=== PATIENT | female | born 2000 | race Caucasian/White ===

== ENCOUNTER 2024-10-14 18:52 | Inpatient (IN) | payer OTHER, SELFPAY ==
[2024-10-14] VITALS (79 sets, daily range): BP systolic 109–175; BP diastolic 56–90; PULSE 69–210; RESP 16–18; TEMP 36.8–37.3; O2SAT 90–100; BMI 20.7
[2024-10-14] MEDS: LACTATED RINGERS 1000 ML 1,000 ML IV ×2 (14:10→15:16)
[2024-10-14 14:19] LABS: Hematocrit 32.8 % (33.0-51.0); Hemoglobin* 10.5 gm/dL (12.0-16.0); Immature Granulocytes Abs Auto 0.03 K/uL (0.00-0.30); Immature Granulocytes Pct Auto 0.4 %; Mean Corpuscular HGB Conc 32 gm/dL (32-36); Mean Corpuscular Hemoglobin 24 pg (26-34); Mean Corpuscular Volume 74 fL (80-100); RDW Coefficient of Variation % 14.6 % (11.5-15.5); Red Blood Count 4.45 m/uL (4.00-5.20); White Blood Count* 8.55 K/uL (4.50-11.00)
[2024-10-14 14:33] LABS: Lymphocytes Absolute Auto 1.70 K/uL (0.90-2.90); Slide Review Reflex No
[2024-10-14] MEDS: BUPIVACAINE 0.25% PF 10 ML 10 ML ML EPIDURAL (15:17)
[2024-10-14] MEDS: ROPIVACAINE 0.2% 100 ml 100 ML 12 MG EPIDURAL (15:17)
[2024-10-14] MEDS: LIDOCAINE 2% (PF) 5 ML VIAL EPIDURAL (15:46)
[2024-10-14 15:55] LABS: Blood Urea Nitrogen* 4 mg/dL (5-24); Creatinine* 0.6 mg/dL (0.5-1.5); Estimated Glomerular Filt Rate 130 ml/min
[2024-10-14 15:56] LABS: Alanine Aminotransferase* 13 U/L (4-35); Aspartate Amino Transferase* 27 U/L (12-35)
--- NOTE | 2024-10-14 15:56 | PM.ANBPRC ---
PFSH PFS Social History Smoking Status: Never smoker Meds Home Medications and Allergies Allergies Allergy/AdvReac Type Severity Reaction Status Date / Time No Known Drug Allergies Allergy Verified 10/14/24 14:49 Results Labs Labs: Laboratory Results - last 24 hr 10/14/24 14:08 WBC 8.55 RBC 4.45 Hgb 10.5 L Hct 32.8 L MCV 74 L MCH 24 L MCHC 32 RDW Coeff of Som 14.6 Plt Count 226 Neut % (Auto) 72.2 H Lymph % (Auto) 19.3 L [place] % (Auto) 7.0 Eos % (Auto) 0.9 Baso % (Auto) 0.2 Neut # (Auto) 6.20 Lymph # (Auto) 1.70 [place] # (Auto) 0.60 Eos # (Auto) 0.08 Baso # (Auto) 0.02 Abs Immat Gran (auto) 0.03 Imm/Tot Granulo (auto) 0.4 Vital Signs Vital Signs: Last Vital Signs Temp 98.2 F 10/14/24 14:00 Pulse 93 10/14/24 15:54 Resp 18 10/14/24 14:00 BP 124/60 10/14/24 15:54 Pulse Ox 90 10/14/24 15:52 Height: 162.56 cm Anesthesia Procedures Epidural Insertion Patient Location: OB Start Time: 15:00 Stop Time: 16:00 Start Date: 10/14/24 Stop Date: 10/14/24 Reason for Block: procedure for pain Patient Position: sitting Performed By: Duke Tan Preanesthetic Checklist: IV checked, risks and benefits discussed, surgical consent, monitors and equipment checked, pre-op evaluation, timeout performed and anesthesia consent Prep: chlorhexidine gluconate Monitoring: blood pressure monitoring, continuous pulse oximetry and heart rate Approach: midline Vertebral Space: lumbar (1-5) Epidural Technique: WILL saline Needle Type: Tuohy needle Injection Technique: continuous catheter Needle gauge: 17 Needle Length (cm): 10 cm Needle Insertion Depth (cm): 6 Catheter Gauge: 19 Catheter Type: multi-orifice Catheter at skin depth (cm): 12 Test Dose Result: negative and lidocaine 1.5% with epinephrine 1 to 200,000
--- NOTE | 2024-10-14 16:15 | PM.OBHPLI ---
OB - H&P: HPI Labor/Induction History of Present Illness Time Seen by Provider: 16:15 Date Seen: 10/14/24 Chief Complaint: The patient is a 24 year old 2 para 0010 at 38+0 weeks gestation by lmp c/w 8 wk US, who presents with contractions. Chief complaint: Maternity : 2 Para: 0 Narrative: Estella Munoz is a 24 year old female at 38+0 days by LMP c/w 8 wk US who presents with contractions. She reports regular contractions starting around 1200 becoming more regular and intense. Upon arrival, she was tanesha regularly and painfully every 1-2 minutes, monitoring showed baseline 140, mod variability, +accels, decls. Cervix was found to be 5/90/0. She requested epidural for pain control. Initial attept was unsuccessful. A second attempt offered much better pain relief. She did have some elevated blood pressures while pain was uncontrolled, but none sustained. Pre-eclampsia labs were obtained and WNL. Now that she is resting comfortably, blood pressures have now returned to the normal range. Patient received care through [facility] in [place]. complicated by low BMI, pre-preg 16, but has had appropriate weight gain, anemia on oral iron with hgb 10.1on 10/08/24, and suspected macrosomia with EFW 98th, AC 99th on 36 week US. GBS negative. FOB is incarcerated at the [place] longterm. Srinir-eg-caa is support person. Patient recently moved from [place] to [place]. History of Present Dating criteria: based on LMP care: good care Ultrasounds: normal 1st trimester US and normal mid trimester US Abnormal ultrasound findings: 36+1 US showed EFW 98th (3591g) and AC 99th, cephalic Labs Blood type: A (+) positive Rubella: immune RPR/VDLR: nonreactive GBS status: negative HBsAG: negative Narrative: HIV, Hep C, GC/chlam neg GCT 100 Review of Systems Status of ROS: Reports: 10 or more systems reviewed and unremarkable except as noted in History and below Meds Home Medications and Allergies Allergies Allergy/AdvReac Type Severity Reaction Status Date / Time shellfish derived Allergy Intermediate Hives Verified 10/14/24 16:39 OB - H&P: Exam Physical Exam: Vital signs: Temp Pulse Resp BP Pulse Ox 98.2 F 92 18 116/69 97 10/14/24 14:00 10/14/24 16:12 10/14/24 14:00 10/14/24 16:12 10/14/24 16:12 Narrative: General appearance: Well-appearing adult female. Alert, oriented and appropriate. Lying down on left side. HEENT: EOMI, no conjunctival injection or discharge. MMM. Neck: Supple. CV: RRR, no rubs, murmurs or extra heart sounds. Pulm: CTAB, no wheezes, rales or rhonchi. Abdomen: Gravid. MSK: Moving all extremities. Ext: Warm and well-perfused. No LE edema. Skin: No rashes appreciated over exposed skin. Neuro: Grossly normal strength and sensation. No focal deficits. Psych: Normal affect. Detailed Labor and Delivery Exam: Dilation (cm): 7 (per RN) Effacement (%): 90 Comments: Ctx 2-4 mins Fetus (Single): Amniotic Membrane Status: intact Heart Rate Baseline: 135 Monitor Accelerations: Present Monitor Decelerations: None Mcc Variability: Moderate (6-25) OB - Results Labs Labs: Short CBC 10/14/24 Range/Units 14:08 WBC 8.55 (4.50-11.00) K/uL Hgb 10.5 L (12.0-16.0) gm/dL Hct 32.8 L (33.0-51.0) % Plt Count 226 (140-440) K/uL BMP 10/14/24 14:08 BUN 4 L Creatinine 0.6 Liver Function 10/14/24 Range/Units 14:08 AST 27 (12-35) U/L ALT 13 (4-35) U/L OB - Problem Based A/P Additional Plan (1) Active labor at term: Status: Acute (2) Term : Status: Acute Plan - Active labor, normal progress - GBS negative - monitoring reassuring - Resting comfortably with epidural - Discussed AROM, patient is considering - Anticipate vaginal delivery
[2024-10-14 17:42] LABS: Protein Creatinine Ratio Urine 0.15 (0-0.19)
[2024-10-14] MEDS: OXYTOCIN 30 unit/500 ML in NS 30 UNIT/500 ML BAG 300 UNIT IVPB (18:14)
[2024-10-14] MEDS: miSOPROStoL 800 MCG/4 TABLET PR (18:30)
--- NOTE | 2024-10-14 18:44 | W.PM.OBVAGDE ---
OB Procedure Vag Delivery Mother Details Mother Details: The patient is a 24 year-old, 2, Para 0, admitted on 10/14/2024 at 38+0 Days gestation. Presented in active labor. Contractions started on DOD at 1200. Upon arrival, FHT were category I, cervix was found to be 5/90/0. Patient requested epidural for pain management. Initial attempt was unsuccessful, and a second attempt was made with good pain control. Cervix 8/90/0 with bulging bag after epidural; AROM performed at 1656 for copious clear fluid. Patient progressed to complete at 1737. Pushing began 1740. FHT were category II in the second stage with variable decelerations to eugenio of 90s with contractions, return to baseline between contractions and with repositioning to patient's left side. Vigorous, male was delivered over intact perineum at 181 onto the maternal chest. Cord was cut and clamped after 60 second delay. There was active management of the third stage with IV pitocin and fundal massage. Placenta delivered spontaneously and complete, 3V at 1819. A second degree left vaginal laceration was repaired with figure-of-8 x 2 with good hemostasis. Several larger gushes of blood were noted and patient was given 800 mg of cytotec rectally. Bleeding improved. EBL 250. Mom and baby are resting comfortably. : 2 Para: 0 Weeks Gestation: 38.0 Admission Date: 10/14/24 Additional Details Amniotic Membrane Status: AROM Amniotic Membrane Rupture Date: 10/14/24 Amniotic Membrane Rupture Time: 16:56 Amniotic Membrane Fluid Description: Clear Analgesia/Anesthesia Type: Epidural Waterbirth: No Pitcoin: No Intrapartal Events: Labor Augmentation Delivery augmentation: rupture of membranes Labor Onset: 12:00 Complete: 17:37 Pushin:40 Heart: heart tones during second stage were category II. Recurrent variable decelerations with pushing to eugenio of 90s, returned to baseline between contractions and with repositioning to patient's left side. Delivery Details Delivery Date: 10/14/24 Delivery Time: 18:13 Route of delivery: Infant Gender: Male Viability: Alive; Heart Rate Present Position at Delivery: OA Delivery Details: Delivered via spontaneous vaginal delivery. was placed on maternal abdomen.? Cord was clamped and cut after a 30-60 second delay. Nose and mouth were bulb suctioned.? Infant weight pending. 1 Minute Interval Total Score: 8 5 Minute Interval Total Score: 9 Additional Details Shoulder Dystocia: No Placenta Delivery Time: 18:19 Placental Delivery Description: Spontaneous Delivery repair: Vicryl Procedure Done: Global Blood Loss: 250 Laceration: Vaginal - 2nd Degree Episiotomy Description: None Blood Loss Measurement Type: QBL Bakri Used: No Sponge/Need Count Correct: Yes Cord Vessel Description: 3 Vessels Event Summary Status: Mother and were stable after delivery. Disposition: floor
[2024-10-14] MEDS: ACETAMINOPHEN 500 MG TABLET 1000 MG PO (20:39)
[2024-10-14] MEDS: IBUPROFEN 600 MG TABLET PO (23:38)
[2024-10-15] MEDS: NICOTINE 7 MG PATCH 1 PATCH TRANSDERMA (00:13)
[2024-10-15 01:34] VITALS: BP 122/74; PULSE 67; RESP 16; TEMP 36.7; O2SAT 96
[2024-10-15] MEDS: LANOLIN CREAM 1 APPLIC TOPICAL (01:40)
[2024-10-15] MEDS: ACETAMINOPHEN 500 MG TABLET 1000 MG PO ×3 (03:38→21:22)
[2024-10-15 04:36] VITALS: BP 118/66; PULSE 71; RESP 16; TEMP 36.8; O2SAT 96
[2024-10-15 05:18] LABS: Hematocrit 28.9 % (33.0-51.0); Hemoglobin* 9.3 gm/dL (12.0-16.0); Mean Corpuscular HGB Conc 32 gm/dL (32-36); Mean Corpuscular Hemoglobin 24 pg (26-34); Mean Corpuscular Volume 73 fL (80-100); Red Blood Count 3.94 m/uL (4.00-5.20); White Blood Count* 9.77 K/uL (4.50-11.00)
[2024-10-15 05:21] LABS: Slide Review Reflex No
[2024-10-15 05:40] LABS: Alanine Aminotransferase* 12 U/L (4-35); Aspartate Amino Transferase* 44 U/L (12-35); Blood Urea Nitrogen* 6 mg/dL (5-24); Creatinine* 0.6 mg/dL (0.5-1.5); Est. Creatinine Clearance* 127.00; Estimated Glomerular Filt Rate 130 ml/min
--- NOTE | 2024-10-15 08:01 | P.OBPN_ITS ---
OB - PN:Subj Subjective Time Seen by Provider: 08:01 Date Seen: 10/15/24 Interval history: pt is seen in routine rounds. Overnight has done well. Had some increased bleeding after laying for awhile and getting up to bathroom. Was evaluated by RN and listed as moderate and thought appropriate amount per RN. Cramping with feeds. no pain. no headaches. OB - PN: Obj Exam Physical Exam: Vital signs: Temp Pulse Resp BP Pulse Ox O2 Del Method 98.2 F 71 16 118/66 96 Room Air 10/15/24 04:36 10/15/24 04:36 10/15/24 04:36 10/15/24 04:36 10/15/24 04:36 10/15/24 04:36 Constitutional: Constitutional: no acute distress and cooperative Routine HEENT Exam: Head: Present normal inspection Eye: Present normal appearance Routine Abdominal Exam: Fundus: Present firm (at umbilicus) OB - PN: Obj Data Labs Labs: Laboratory Results - last 24 hr 10/14/24 10/14/24 10/15/24 14:08 17:11 05:15 WBC 8.55 9.77 RBC 4.45 3.94 L Hgb 10.5 L 9.3 L Hct 32.8 L 28.9 L MCV 74 L 73 L MCH 24 L 24 L MCHC 32 32 RDW Coeff of Som 14.6 Plt Count 226 215 Neut % (Auto) 72.2 H Lymph % (Auto) 19.3 L Mck[place]ley % (Auto) 7.0 Eos % (Auto) 0.9 Baso % (Auto) 0.2 Neut # (Auto) 6.20 Lymph # (Auto) 1.70 Mckinley # (Auto) 0.60 Eos # (Auto) 0.08 Baso # (Auto) 0.02 Abs Immat Gran (auto) 0.03 Imm/Tot Granulo (auto) 0.4 BUN 4 L 6 Creatinine 0.6 0.6 Estimated Creat Clear 127.00 Estimated GFR 130 130 AST 27 44 H ALT 13 12 Urine Creatinine 72.2 Protein/Creatinin Ratio 0.15 Urine Total Protein 11 Blood Type A Positive Antibody Screen NEGATIVE OB - PN: A/P Delivery Assessment and Plan (1) Active labor at term: Status: Acute (2) Term : Status: Acute (3) (normal spontaneous vaginal delivery): Problem details: G1, now P1 delivered 10/14/24 at 1813, . Status: Acute Assessment and Plan: -had elevated bp's in labor but NOT >4 hours apart AND per provider and pt, were when pt was screaming in pain as epidural was not working. No elevated BP's since after 190 last night. -AST minimally elevated this am at 44, will recheck 6 hours from then. Discussed BP's and labs with pt. Discussed may need further testing/intervention if BP increases again or labs increasing. pt reported understanding and all questions answered. -plan likely home tomorrow if BP/labs look okay and continues to do well
[2024-10-15 09:07] VITALS: BP 125/77; PULSE 76; RESP 15; O2SAT 97
[2024-10-15] MEDS: DOCUSATE SODIUM 100 MG CAPSULE PO (09:13)
[2024-10-15] MEDS: IBUPROFEN 600 MG TABLET PO ×2 (09:13→19:59)
[2024-10-15 09:15] VITALS: TEMP 36.4
[2024-10-15 12:12] LABS: Alanine Aminotransferase* 12 U/L (4-35); Aspartate Amino Transferase* 36 U/L (12-35); Creatinine* 0.6 mg/dL (0.5-1.5); Est. Creatinine Clearance* 127.00; Estimated Glomerular Filt Rate 130 ml/min
[2024-10-15 14:12] VITALS: BP 122/81; PULSE 75; RESP 16; TEMP 36.6; O2SAT 98
--- NOTE | 2024-10-15 15:28 | PC.SOCIAL ---
Social Service Consult: CASANDRA met with patient and patient's sister. Patient reports that she is doing well overall. Patient explains that she currently has a place to live through the [facility] and feels safe and comfortable there. Patient states that she will be able to get an extension there until January. Patient reports that the [facility] has helped her obtain all of the necessary baby items - pack and play, clothes, diapers, etc. Patient reports that she has a car currently, but won't soon. SW inquired about transportation barriers after she doesn't have a car and patient expresses that she doesn't have concerns about it. Patient reports she has her sister for emotional support, however, she lives in [place], otherwise she has her boyfriend's family. SW reviewed PMADS with patient and sister and will provide them with copies. Patient was also open to receiving information about parenting support groups, which SW will bring information on in the morning. Patient explains she is on WIC, but not on SNAP as when she applied she was told she needed to have child support first. SW explained that she doesn't believe this is the case and will bring information around this and the number for [facility]. SW went to bring all the information to patient, however, the echo team was in there, so patient was okay with SW coming back in the morning. SW to continue to support patient.
[2024-10-15 20:10] VITALS: BP 114/71; PULSE 70; RESP 16; TEMP 36.6; O2SAT 95
[2024-10-16] MEDS: NICOTINE 7 MG PATCH 1 PATCH TRANSDERMA (00:07)
[2024-10-16] MEDS: IBUPROFEN 600 MG TABLET PO ×2 (02:27→09:41)
[2024-10-16 02:32] VITALS: BP 113/69; PULSE 76; RESP 18; TEMP 36.6; O2SAT 96
[2024-10-16] MEDS: ACETAMINOPHEN 500 MG TABLET 1000 MG PO (05:59)
--- NOTE | 2024-10-16 08:05 | PM.OBDSVD1 ---
DS: Providers Provider Date Seen: 10/16/24 Date of admission: 10/14/24 18:52 Primary care physician: Not a Local Provider Admitting Clinician: Demetria Garcia MD Consults: 10/14/24 16:23 Consult to Pediatrician Active Practice [CONS] Routine Comment: Reason for Consult:: Discharge Planning Needs Social Service Consult Attending Physician on discharge: Pauly Albarran MD Date of Discharge: 10/16/24 DS: Diagnosis Discharge Diagnosis (1) (normal spontaneous vaginal delivery): Status: Acute Problem details: G1, now P1 delivered 10/14/24 at 1813, . Exam Const: Vital Signs, click to edit/add: Vital Signs - 24 hr 10/15/24 09:07 10/15/24 09:15 10/15/24 14:12 Temperature 97.5 F L 97.9 F Pulse Rate [Pulse Oximeter] 76 75 Respiratory Rate 15 16 Blood Pressure [Le ft Arm] 125/77 122/81 Pulse Oximetry 97 98 Oxygen Delivery Me thod Room Air Room Air 10/15/24 20:10 10/16/24 02:32 Temperature 97.8 F 98 F Pulse Rate [Pulse Oximeter] 70 76 Respiratory Rate 16 18 Blood Pressure [Le ft Arm] 114/71 113/69 Pulse Oximetry 95 96 Oxygen Delivery Me thod Room Air Room Air Documenting provider has reviewed patient's vital signs: yes Common normals: no apparent distress, average body habitus, healthy appearing and alert General appearance: cooperative and comfortable Nutritional appearance: thin Orientation/consciousness: Yes awake GI: Common normals: Normal to inspection, nondistended, normoactive bowel sounds present and soft to palpation Palpation: soft : Uterus: U/U (firm) Extremity: Common normals: normal to inspection, full ROM and no pedal edema Neuro: Sensorium/orientation: awake and alert Psych: Common normals: mental status grossly normal, thought process normal, cooperative, affect normal and speech normal Speech: normal speech Thought process: normal thought process OB - DS: Summary Hospital Course Hospital Course: The patient is a 24 year old G 2 P 1011 at 38 weeks gestation that was admitted to the Center on 10/14/24 for active labor. She had an uncomplicated vaginal delivery. She delivered a viable male infant. She is breast feeding. the patient has done well. Peripartum Data delivery method: Vaginal Laceration description: Perineal - 2nd Degree complications: none Infant Gender: Male Infant Discharge Plan: Home Status at Discharge Functional status at discharge: independent ambulation Overall status at discharge: patient is progressing back to baseline Time Spent with Patient Time attestation: Total time spent providing and/or coordinating discharge services: Time spent: Less than 30 minutes Discharge Plan Discharge Disposition: Home, Self-Care Date of Admission: 10/14/24 18:52 Attending Provider on Discharge: Pauly Albarran Primary Care Provider: Provider,Not a Local Condition: Improved Anticipated Discharge Date/Time: 10/16/24 08:08 Discharge Medications: Continued ferrous sulfate [iron] 325 mg (65 mg iron) tablet 325 mg PO Q48H Discharge Orders: Discharge Order (Routine); Ordered 10/16/24 Ordered By: Pauly Albarran Patient Education: OB Vaginal/Breast Feeding Activity Level: No Restrictions Activity Detail: Nothing per vagina x6 weeks Discharge Diet: Regular Follow Up Appointments: Provider,Not a Local [Primary Care Provider, Family Practice] Forms: [facility], [facility] Info Instructions
[2024-10-16 09:20] VITALS: BP 121/72; PULSE 69; RESP 16; TEMP 36.6; O2SAT 97
[2024-10-16] MEDS: DOCUSATE SODIUM 100 MG CAPSULE PO (09:41)
--- NOTE | 2024-10-16 10:10 | PC.SOCIAL ---
SW met with patient and reviewed resources discussed and provided - SNAP, child support, CAC, Parenting Support with [facility], ECFE, Baby Talk, and PMADS. SW to assist if other needs arise prior to discharge. SW updated patient's demographics with registration.
--- NOTE | 2024-10-16 11:42 | PM.ANPOST ---
Post Anesthesia Note Post Anesthesia Note Patient seen: Inpatient Respiratory Status: adequate Cardiovascular Status: adequate Mental Status: baseline Pain: adequate Temp: baseline Anesthetic awareness: N/A Complications: none Follow care: none
[2024-10-16 15:41] VITALS: BP 127/81; PULSE 74; RESP 16; TEMP 36.7; O2SAT 97
== END 2024-10-16 18:03 | disposition home or self-care (01) | DRG 560 ==
LOC: OB OUT 18:52 → OB 18:52
PROVIDERS: Family Medicine; Admitting Provider Family Medicine; Visit Provider Family Medicine
DX: O99.02 Anemia complicating childbirth (principal); D64.9 Anemia, unspecified; O70.1 Second degree perineal laceration during delivery; R03.0 Elevated blood-pressure reading, without diagnosis of hypertension; Z63.8 Other specified problems related to primary support group; Z37.0 Single live birth; Z3A.38 38 weeks gestation of pregnancy
CPT/HCPCS: 01967; 36415; 82565; 82570; 84156; 84450; 84460; 84520; 85025; 85027; 85049; 86592; 86850; 86900; 86901; G0463; A9270; J0665; J2795; J7120; S4990

== ENCOUNTER 2024-10-19 06:41 | Outpatient (CLI) | payer OTHER, SELFPAY | END 2024-10-19 06:42 | disposition home or self-care (01) | LOC: AMB 10-21 11:24 | PROVIDERS: Visit Provider Family Medicine | DX: R07.89 Other chest pain (principal); R06.09 Other forms of dyspnea | CPT/HCPCS: A0425; A0427 ==

== ENCOUNTER 2024-10-19 07:12 | Observation (INO) | payer OTHER, SELFPAY ==
--- OUTSIDE RECORDS SUMMARY | 2024-09-05 11:00 | XMS_ITS | Encounter Summary ---
Author Organization [facility] Address [address] [place] [address] Care Team Providers Care Needle Punch Machine Operator Name Role Phone None Reported, Pcp Primary Care Provider Unavail able Reason for Visit * Reason Comments Routine Visit 32+3weeks * Outpatient (Routine) - Closed Specialty Diagnoses / Procedures Referred By Pippa roman Referred To Contact Obstetrics and Gynecology Alban Haas Jr., M.D. Phone: tel: fax: [facility] Region Referral ID Status Reason Start Date Expiration Date Visits Re quested Visits Authorized [id number] Closed 05/27/2024 11/26/2025 1 1 Encounter Details Date Type Department Care Team (Latest Contact Info) Description 09/05/2024 11:00 AM CDT Routine Department of Obstetrics and Gynecology in [place], [place] [address] [place] [phone] Alban Haas Jr., M.D. [address] [place] [phone] Anemia (HCC) (Primary Dx); Encounter For Supervision Of Normal First Unspecified Trimester (HCC) Social History Tobacco Use Types Packs/Day Years Used Date Smoking Tobacco: Never Passive Smoke Exposure: Current Smokeless Tobacco: Never Comments:Vaping discontinued 03/08/2024 Alcohol Use Standard Drinks/Week Comments Never 0 (1 standard drink = 0.6 oz pur e alcohol) [facility] Utilities Answer Date Recorded In the past 12 months has [employer] electric, gas, oil, or water company threatened to shut off services in your home? No 08/18/2024 Humiliation, Afraid, Rape, and Kick questionnair e Answer Date Recorded Within the last year, have y ou been afraid of your partner or ex-partner? No 03/31/2022 Within the last year, have y ou been humiliated or emotionally abused in other ways by your partner or ex-partner? No Within the last year, have y ou been kicked, hit, slapped, or otherwise physically hurt by your partner or ex-partner? No 03/31/2022 Within the last year, have y ou been raped or forced to have any kind of sexual activity by your partner or ex-partner? No 03/31/2022 Hunger Vital Sign Answer Date Recorded Within the past 12 months, y ou worried that your food would run out before you got the money to buy more. Often true Within the past 12 months, t he food you bought just didn't last and you didn't have money to get more. Sometimes true PRAPARE - Transportation Answer Date Re corded In the past 12 months, has l ack of transportation kept you from medical appointments or from getting medications? No 08/06 In the past 12 months, has l ack of transportation kept you from meetings, work, or from getting things needed for daily living? Yes 08/18/2024 Depression Answer Date Recor ded PHQ-9 Total Score (max 27) 2 08/05 Housing Stability Answer Date Recorded What is your living situatio n today? I do not have a steady place to live (I am temporarily staying with others, in a hotel, in a mcc, living outside on the street, on a beach, in a car, abandoned building, bus or train station, or in a park) 08/18/2024 Education Answer Date Recorded What is the highest level of school you have completed or the highest degree you have received? 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 - 09/05/2024 11:00 AM CDT Images from the original note were not included. SUBJECTIVE Good movement. No consistent contractions. She does have some right rib pain at times as her ribs are getting stretched as well as some pelvic rim discomfort intermittently, especially at work.No consistent contractions. PHYSICAL EXAM GEN: NAD Lower Extremities: NT, no edema DIAGNOSTICS Ultrasound at 36 weeks ASSESSMENT / PLAN Estella Munoz is a 24 y.o. female at 32w3d who presents for OBFU. #1 Anemia (HCC) Overview: Started on oral iron. Repeat ferritin and CBC ordered 06/10/2024. Consider iron infusion if needed. Patient does complain of restless legs. Hemoglobin 10.1 on 08/05. #2 Encounter For Supervision Of Normal First Unspecified Trimester (HCC) Overview: Dating: LMP 5d discrep w/ 8 week ultrasound NIPS declined. Urinalysis and routine labs done today. Orders through: 39 weeks, us 36 Thirty week ultrasound shows growth at around 80th percentile overall normal fluid. Work lifting restrictions given, told her I am retiring October 15. Pelvic brim is somewhat tender advised on local ice as needed. support belt given. Other orders - Obstetrics and Gynecology office visit (clinic) Follow up: Appointments ordered through 39 weeks. documented in this encounter Plan of Treatment Not on file documented as of this encounter Goals Goal Patient Goal Type Associated Problems Recent Progress Patient-Stated? Author [facility] Care Plan for Healthy Care Plan [facility] Care Plan for Healthy No Support, [facility] - Nicotine Dependency Chronic Care Plan [facility] Care Plan for Healthy No Support, [facility] NICOTINE CURRENT SMOKER - HEALTHY Care Plan [facility] NICOTINE CURRENT SMOKER - HEALTHY No Patient, Online Services documented as of this encounter Visit Diagnoses Diagnosis Anemia (HCC)- Primary Encounter For Supervision Of Normal First Unspecified Trimester (HCC) documented in this encounter Additional Health Concerns Active Problems Noted Date Diagnosed Date [facility] Care Plan for Healthy 04/06 [facility] NICOTINE CURRENT SMOKER - HEALTHY PREGNA NCY 04/23/2024 Assessment Noted Time PHQ-9 Depression Total Score: 2 08/06/19 25 10:55 AM CDT documented as of this encounter Care Teams Needle Punch Machine Operator Relationship Specialty Start Date End Date None Reported, Pcp PCP - General Family Medicine 06/06/24 documented as of this encounter
--- OUTSIDE RECORDS SUMMARY | 2024-09-18 09:15 | XMS_ITS | Encounter Summary ---
Author Organization [facility] Address [address] [place] [address] Care Team Providers Care Beverage Manager Name Role Phone None Reported, Pcp Primary Care Provider Unavail able Reason for Visit * Reason Comments Routine Visit 34 2/7 week OB ch ed * Outpatient (Routine) - Closed Specialty Diagnoses / Procedures Referred By Pippa roman Referred To Contact Obstetrics and Gynecology Alban Haas Jr., M.D. Phone: tel: fax: [facility] Region Referral ID Status Reason Start Date Expiration Date Visits Re quested Visits Authorized [id number] Closed 07/08/2024 01/07/2026 1 1 Encounter Details Date Type Department Care Team (Latest Contact Info) Description 09/18/2024 9:15 AM CDT Routine Department of Obstetrics and Gynecology in [place], [place] [address] [place] [phone] Alban Haas Jr., M.D. [address] [place] [phone] Encounter For Supervision Of Normal First Unspecified Trimester (HCC) (Primary Dx) Social History Tobacco Use Types Packs/Day Years Used Date Smoking Tobacco: Never Passive Smoke Exposure: Current Smokeless Tobacco: Never Comments:Vaping discontinued 03/08/2024 Alcohol Use Standard Drinks/Week Comments Never 0 (1 standard drink = 0.6 oz pur e alcohol) [facility] Utilities Answer Date Recorded In the past 12 months has e electric, gas, oil, or water company threatened [...] with others, in a hotel, in a fdc, living outside on the street, on a [...] PM CDT 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 - 09/18/2024 9:15 AM CDT Images from the original note were not included. SUBJECTIVE Occasional contractions. Sometimes when she is lying down sometimes when she is walking around. Shehas stopped work as it was just too uncomfortable. PHYSICAL EXAM GEN: NAD Lower Extremities: NT, no edema DIAGNOSTICS Ultrasound and GBS next visit ASSESSMENT / PLAN Estella Munoz is a 24 y.o. female at 34w2d who presents for OBFU. #1 Encounter For Supervision Of Normal First Unspecified Trimester (HCC) Overview: Dating: LMP 5d discrep w/ 8 week ultrasound NIPS declined. Urinalysis and routine labs done today. Thirty week ultrasound shows growth at around 80th percentile overall normal fluid. Work lifting restrictions given, told her I am retiring October 15. Pelvic brim is somewhat tender advised on local ice as needed. support belt given. 09/18/2024: Patient is stable. Having occasional contractions. labor precautions discussed. Has a appointments through 10/21. Other orders - Obstetrics and Gynecology office visit (clinic) Follow up: Scheduled. documented in this encounter Plan of Treatment Not on file documented as of this encounter Goals Goal Patient Goal Type Associated Problems Recent Progress Patient-Stated? Author [facility] Care Plan for Healthy Care Plan [facility] Care Plan for Healthy No Support, [facility] - Nicotine Dependency Chronic Care Plan [facility] Care Plan for Healthy No Support, [facility] NICOTINE CURRENT SMOKER - HEALTHY Care Plan [facility] NICOTINE CURRENT SMOKER - HEALTHY No Patient, Online Services documented as of this encounter Visit Diagnoses Diagnosis Encounter For Supervision Of Normal First Unspecified Trimester (HCC)- Primary documented in this encounter Additional Health Concerns Active Problems Noted Date Diagnosed Date [facility] Care Plan for Healthy 04/06 [facility] NICOTINE CURRENT SMOKER - HEALTHY PREGNA NCY 04/23/2024 Assessment Noted Time PHQ-9 Depression Total Score: 2 08/06/19 25 10:55 AM CDT documented as of this encounter Care Teams Beverage Manager Relationship Specialty Start Date End Date None Reported, Pcp PCP - General Family Medicine 06/06/24 documented as of this encounter
--- OUTSIDE RECORDS SUMMARY | 2024-10-01 15:00 | XMS_ITS | Encounter Summary ---
Author Organization [facility] Address [address] [place] [address] Care Team Providers Care Artificial Fly Tier Name Role Phone None Reported, Pcp Primary Care Provider Unavail able Encounter Details Date Type Department Care Team (Latest Contact Info) Description 10/01/2024 3:00 PM CDT Ancillary Procedure Department of Obstetrics and Gynecology in [place], [place] [address] [place] [phone] Alban Haas Jr., M.D. [address] [place] [phone] Complication Underweight (HCC); Encounter For Supervision Of Normal First Unspecified Trimester (HCC) Social History Tobacco Use Types Packs/Day Years Used Date Smoking Tobacco: Never Passive Smoke Exposure: Current Smokeless Tobacco: Never Comments:Vaping discontinued 03/08/2024 Alcohol Use Standard Drinks/Week Comments Never 0 (1 standard drink = 0.6 oz pur e alcohol) [facility] Utilities Answer Date Recorded In the past 12 months has [facility] [employer], gas, oil, or water [employer] threatened to shut off services in your [...] PM CDT 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 Author [facility] Care Plan for Healthy Care Plan [facility] Care Plan for Healthy No Support, [facility] - Nicotine Dependency Chronic Care Plan [facility] Care Plan for Healthy No Support, [facility] NICOTINE CURRENT SMOKER - HEALTHY Care Plan [facility] NICOTINE CURRENT SMOKER - HEALTHY No Patient, Online Services documented as of this encounter Procedures Procedure Name Priority Date/Time Associated Diagnosis Comments US OB GROWTH PARK RAD - Routine (most inpatients and all outpatients) 10/01/2024 3:30 PM CDT Complication Underweight (HCC) Encounter For Supervision Of Normal First Unspecified Trimester (HCC) documented in this encounter Results * US OB Growth Park (10/01/2024 3:30 PM CDT) Anatomical Region Laterality Modality Body, Ultrasound OB RST LOS, Ultrasound ARZ LOS N/A Ultrasound Impressions 10/01/2024 3:36 PM CDT Single intrauterine at 36 w 1 d gestation. --Estimated weight (3591 g) at the 98th percentile, abdominal circumference at the 99th percentile. --Cephalic presentation with normal amniotic fluid volume. Narrative 10/01/2024 3:36 PM CDT EXAM: US OB GROWTH PARK COMPARISON: Correlation is performed with several prior studies, most recently ultrasound 08/20/2024. TECHNIQUE: Transabdominal Only FINDINGS: Number of Gestations: Single Established Gestational age: 36 w 1 d, MICAH: 10/28/2024 Presentation: Cephalic Placenta Location: Anterior Placental Relationship to Internal Os: Not well visualized on today's exam but appeared normal on prior exam Amniotic Fluid: Subjectively normal in volume Maximum Vertical Pocket: 7.2 cm Age by current ultrasound measurements: 38 w 1 d Estimated weight: 3591 g. EFW %: 97.6 % heart rate: 141 Motion: Normal. Stomach: Normal. Kidneys: Normal. Bladder: Normal. BIOMETRIC PARAMETERS: BPD: 36 w 3 d 65.7 % HC: 39 w 3 d 90.6 % AC: 39 w 6 d 99.0 % FL: 37 w 1 d 71.3 % HC/AC ratio: 0.95 Uterus: No unexpected findings. Right ovary/adnexa: Normal. Left ovary/adnexa: Normal. Cervix: . Not well viewed Procedure Note Zeeshan Guillen M.D. - 10/01/2024 EXAM: US OB GROWTH PARK COMPARISON: Correlation is performed with several prior studies, mostrecently ultrasound 08/20/2024. TECHNIQUE: Transabdominal Only FINDINGS: Number of Gestations: Single Established Gestational age: 36 w 1 d, MICAH: 10/28/2024 Presentation: Cephalic Placenta Location: Anterior Placental Relationship to Internal Os: Not well visualized on today's exambut appeared normal on prior exam Amniotic Fluid: Subjectively normal in volume Maximum Vertical Pocket: 7.2 cm Age by current ultrasound measurements: 38 w 1 d Estimated weight: 3591 g. EFW %: 97.6 % heart rate: 141 Motion: Normal. Stomach: Normal. Kidneys: Normal. Bladder: Normal. BIOMETRIC PARAMETERS: BPD: 36 w 3 d 65.7 % HC: 39 w 3 d 90.6 % AC: 39 w 6 d 99.0 % FL: 37 w 1 d 71.3 % HC/AC ratio: 0.95 Uterus: No unexpected findings. Right ovary/adnexa: Normal. Left ovary/adnexa: Normal. Cervix: . Not well viewed IMPRESSION: Single intrauterine at 36 w 1 d gestation. --Estimated weight (3591 g) at the 98th percentile, abdominalcircumference at the 99th percentile. --Cephalic presentation with normal amniotic fluid volume. us Alban Haas Jr., M.D. IMG OB US PROCEDURES F inal Result documented in this encounter Visit Diagnoses Diagnosis Complication Underweight (HCC) Encounter For Supervision Of Normal First Unspecified Trimester (HCC) documented in this encounter Additional Health Concerns Active Problems Noted Date Diagnosed Date [facility] Care Plan for Healthy 04/06 [facility] NICOTINE CURRENT SMOKER - HEALTHY PREGNA NCY 04/23/2024 Assessment Noted Time PHQ-9 Depression Total Score: 2 08/06/19 10:55 AM CDT documented as of this encounter Care Teams Artificial Fly Tier Relationship Specialty Start Date End Date None Reported, Pcp PCP - General Family Medicine 06/06/24 documented as of this encounter
--- OUTSIDE RECORDS SUMMARY | 2024-10-01 16:00 | XMS_ITS | Encounter Summary ---
Author Organization [facility] Address [address] [place] [address] Care Team Providers Care Track Mechanic Name Role Phone None Reported, Pcp Primary Care Provider Unavail able Reason for Visit * Reason Comments Routine Visit 36+1weeks * Outpatient (Routine) - Closed Specialty Diagnoses / Procedures Referred By Pippa roman Referred To Contact Obstetrics and Gynecology Alban Haas Jr., M.D. Phone: tel: fax: [facility] Referral ID Status Reason Start Date Expiration Date Visits Re quested Visits Authorized [id number] Closed 08/18/2024 02/17/2026 1 1 Encounter Details Date Type Department Care Team (Latest Contact Info) Description 10/01/2024 4:00 PM CDT Routine Department of Obstetrics and Gynecology in [place], [place] [address] [phone] Alban Haas Jr., M.D. [address] [place] [phone] Encounter For Supervision Of Normal First Unspecified Trimester (HCC) (Primary Dx); Complication Underweight (HCC) Social History Tobacco Use Types Packs/Day Years Used Date Smoking Tobacco: Never Passive Smoke Exposure: Current Smokeless Tobacco: Never Comments:Vaping discontinued 03/08/2024 Alcohol Use Standard Drinks/Week Comments Never 0 (1 standard drink = 0.6 oz pur e alcohol) [facility] Utilities Answer Date Recorded In the past 12 months has [employer] electric, gas, oil, or water company threatened [...] with others, in a hotel, in a skilled nursing, living outside on the street, on a [...] PM CDT 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 - 10/01/2024 4:00 PM CDT SUBJECTIVE Good movement with some occasional cramps. Difficult for her to breathe at night when she lies flat. Advised on elevating her bed on send her blocks. PHYSICAL EXAM GEN: NAD Lower Extremities: NT, no edema Cervix: Baby is starting to engage it about a -1 to -2 station. Slightly dilated cervix and starting to efface. DIAGNOSTICS Ultrasound reviewed ASSESSMENT / PLAN Estella Munoz is a 24 y.o. female at 36w1d who presents for OBFU. #1 Encounter For [...] precautions discussed. Has a appointments through 10/21. 10/01/2024: GBS obtained. Labor precautions. Ultrasound shows growth at over 97th percentile with large abdominal circumference. Cephalic presentation and normal fluid. Orders: - Group B Strep (S. agalactiae), PCR #2 Complication Underweight (HCC) Overview: Prepregnancy BMI 16. Public Health/WIC consult placed. Nutrition consult ordered. 04/18/2024: Patient gaining weight appropriately and believes she is eating well. Good growth. 07/09/2024: 10 kg of weight gain so far this at 24 weeks. 10/01/2024 Growth >95%ile Has a appointments through 39 weeks. Other orders - Obstetrics and Gynecology office visit (clinic) Follow up: 1 week. Labor precautions given. documented in this encounter Plan of Treatment Not on file documented as of this encounter Goals Goal Patient Goal Type Associated Problems Recent Progress Patient-Stated? Author [facility] Care Plan for Healthy Care Plan [facility] Care Plan for Healthy No Support, [facility] - Nicotine Dependency Chronic Care Plan [facility] Care Plan for Healthy No Support, [facility] NICOTINE CURRENT SMOKER - HEALTHY Care Plan [facility] NICOTINE CURRENT SMOKER - HEALTHY No Patient, Online Services documented as of this encounter Procedures Procedure Name Priority Date/Time Associated Diagnosis Comments GROUP B STREP (S. AGALACTIAE), PCR Routine 10/01/2024 3:29 PM CDT Encounter For Supervision Of Normal First Unspecified Trimester (HCC) documented in this encounter Results * Group B Strep (S. agalactiae), PCR (10/01/2024 3:29 PM CDT) Grp B Strep (S. agalactiae), PCR Negative Negative 10/02/2024 2:12 PM CDT TO Swab (Vagina-Rectum) 10/01/2024 3:29 PM CDT 10/01/2024 6:54 PM CDT us Alban Haas Jr., M.D. LAB MICROBIOLOGY - GEN ERAL ORDERABLES Final Result [facility] [address] [place] [address], [facility] in [place] [address] [place] [phone] documented in this encounter Visit Diagnoses Diagnosis Encounter For Supervision Of Normal First Unspecified Trimester (HCC)- Primary Complication Underweight (HCC) documented in this encounter Additional Health Concerns Active Problems Noted Date Diagnosed Date [facility] Care Plan for Healthy 04/06 [facility] NICOTINE CURRENT SMOKER - HEALTHY PREGNA NCY 04/23/2024 Assessment Noted Time PHQ-9 Depression Total Score: 2 08/06/19 10:55 AM CDT documented as of this encounter Care Teams Track Mechanic Relationship Specialty Start Date End Date None Reported, Pcp PCP - General Family Medicine 06/06/24 documented as of this encounter
--- OUTSIDE RECORDS SUMMARY | 2024-10-08 10:30 | XMS_ITS | Encounter Summary ---
Author Organization [facility] Address [address] [place] [address] Care Team Providers Care Studio Operation Engineer Name Role Phone None Reported, Pcp Primary Care Provider Unavail able Reason for Visit * Reason Comments Routine Visit [id number] * Outpatient (Routine) - Closed Specialty Diagnoses / Procedures Referred By Pippa roman Referred To Contact Obstetrics and Gynecology Alban Haas Jr., M.D. Phone: tel: fax: [facility] Region Referral ID Status Reason Start Date Expiration Date Visits Re quested Visits Authorized [id number] Closed 07/08/2024 01/07/2026 1 1 Encounter Details Date Type Department Care Team (Latest Contact Info) Description 10/08/2024 10:30 AM CDT Routine Department of Obstetrics and Gynecology in [place], [place] [address] [place] [phone] Alban Haas Jr., M.D. [address] [place] [phone] Anemia (HCC) (Primary Dx); Encounter For Screening For Macrosomia (HCC); Encounter For Supervision Of Normal First Unspecified Trimester (HCC) Social History Tobacco Use Types Packs/Day Years Used Date Smoking Tobacco: Never Passive Smoke Exposure: Current Smokeless Tobacco: Never Comments:Vaping discontinued 03/08/2024 Alcohol Use Standard Drinks/Week Comments Never 0 (1 standard drink = 0.6 oz pur e alcohol) [facility] Utilities Answer Date Recorded In the past 12 months has e [employer], gas, oil, or water company threatened to [...] with others, in a hotel, in a long term, living outside on the street, on a [...] PM CDT 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 - 10/08/2024 10:30 AM CDT SUBJECTIVE Still having difficulty sleeping. Good movement. Becoming very uncomfortable. Very anxious about delivery. PHYSICAL EXAM GEN: NAD Lower Extremities: NT, no edema\ Cervix: 250/-1 DIAGNOSTICS Ultrasound ordered for 39 weeks. ASSESSMENT / PLAN Estella Munoz is a 24 y.o. female at 37w1d who presents for OBFU. #1 Anemia (HCC) Overview: Started on oral iron. Repeat ferritin and CBC ordered 06/10/2024. Consider iron infusion if needed. Patient does complain of restless legs. Hemoglobin 10.1 on 08/05. 10/08/2024: CBC repeated Orders: - CBC without Differential; Future; Expected date: 10/08/2024 #2 Encounter For Screening For Macrosomia (HCC) Overview: 10/01/2024 ultrasound BIOMETRIC PARAMETERS: BPD: 36 w 3 d 65.7 % HC: 39 w 3 d 90.6 % AC: 39 w 6 d 99.0 % FL: 37 w 1 d 71.3 % HC/AC ratio: 0.95 IMPRESSION: Single intrauterine at 36 w 1 d gestation. --Estimated weight (3591 g) at the 98th percentile, abdominal circumference at the 99th percentile. --Cephalic presentation with normal amniotic fluid volume. 10/08/2024: Repeat ultrasound at 39 weeks. Patient is very concerned about size of the baby and pelvic floor issues. She is also concerned about distress if the baby gets stuck. Discussed natural course of labor in the fact that it isencouraging that the baby is starting to engage and her cervix is changing. However also discussed that as her choice if she wants to have a primary section. Risk of surgery including bleeding infection damage to internal organs fact that she may need sections in the future discussed. Also increase risk of postoperative complications versus a vaginal delivery. We will talk about this again next week. Appears to have pretty significant anxiety around this potential vaginal delivery. Orders: - US OB Growth Corley; Future; Expected date: 10/22/2024 #3 Encounter For Supervision Of Normal First Unspecified [...] abdominal circumference. Cephalic presentation and normal fluid. Other orders - Obstetrics and Gynecology office visit (clinic) Follow up: 1 week, ultrasound in 2 weeks. documented in this encounter Plan of Treatment Scheduled Orders Name Type Priority Associated Diagnoses Orde r Schedule US OB Growth Corley Imaging RAD - Routine (most inpatients and all outpatients) Encounter For Screening For Macrosomia (HCC) Expected: 10/22/2024, Expires: 01/07/2026 documented as of this encounter Goals Goal Patient Goal Type Associated Problems Recent Progress Patient-Stated? Author [facility] Care Plan for Healthy Care Plan [facility] Care Plan for Healthy No Support, Elinor [facility] - Nicotine Dependency Chronic Care Plan [facility] Care Plan for Healthy No Support, Elinor [facility] NICOTINE CURRENT SMOKER - HEALTHY Care Plan [facility] NICOTINE CURRENT SMOKER - HEALTHY No Patient, Online Services documented as of this encounter Results * (ABNORMAL) CBC without Differential (10/08/2024 11:39 AM CDT) Hemoglobin 10.1(L) 11.6 - 15.0 g/dL 10/08/2024 11:44 AM CDT OWAT Hematocrit 32.3(L) 35.5 - 44.9 % 10/08/2024 11:44 AM CDT OWAT Erythrocytes 4.25 3.92 - 5.13 x10(12)/L 10/08/2024 11:44 AM CDT OW[facility] MCV 76.0(L) 78.2 - 97.9 fL 10/08/2024 11:44 AM CDT OW[facility] RBC Distrib Width 14.8 12.2 - 16.1 % 10/08/2024 11:44 AM CDT OW[facility] Platelet Count 222 157 - 371 x10(9)/L 10/08/2024 11:44 AM CDT OW[facility] Leukocytes 8.1 3.4 - 9.6 x10(9)/L 10/08/2024 11:44 AM CDT OWAT Blood (Blood, Venous) 10/08/2024 11:39 AM CDT 10/08/2024 11:42 AM CDT us Alban Haas Jr., M.D. LAB BLOOD ADD-ON Final Result [facility] [address] [place] [address], [facility] [place] [address], [place] [address] documented in this encounter Visit Diagnoses Diagnosis Anemia (HCC)- Primary Encounter For Screening For Macrosomia (HCC) Encounter For Supervision Of Normal First Unspecified Trimester (HCC) documented in this encounter Additional Health Concerns Active Problems Noted Date Diagnosed Date [facility] Care Plan for Healthy 04/06 [facility] NICOTINE CURRENT SMOKER - HEALTHY PREGNA NCY 04/23/2024 Assessment Noted Time PHQ-9 Depression Total Score: 2 08/06/19 10:55 AM CDT documented as of this encounter Care Teams Studio Operation Engineer Relationship Specialty Start Date End Date None Reported, Pcp PCP - General Family Medicine 06/06/24 documented as of this encounter
--- OUTSIDE RECORDS SUMMARY | 2024-10-08 11:10 | XMS_ITS | Encounter Summary ---
Author Organization [facility] Address [address] [place] [address] Care Team Providers Care Sales Representative Public Utilities Name Role Phone None Reported, Pcp Primary Care Provider Unavail able Encounter Details Date Type Department Care Team (Latest Contact Info) Description 10/08/2024 11:10 AM CDT - 10/08/2024 11:59 PM CDT Hospital Encounter Department of Laboratory Medicine in [place], [place] [address], [place] [phone] Alban Haas Jr., M.D. [address] [place] [phone] Anemia (HCC) Discharge Disposition: Home or Self Care Social History Tobacco Use Types Packs/Day Years Used Date Smoking Tobacco: Never Passive Smoke Exposure: Current Smokeless Tobacco: Never Comments:Vaping discontinued 03/08/2024 Alcohol Use Standard Drinks/Week Comments Never 0 (1 standard drink = 0.6 oz pur e alcohol) [facility] Utilities Answer Date Recorded In the past 12 months has [facility] [employer], gas, oil, or water [employer] threatened to shut off services in your [...] with others, in a hotel, in a correction, living outside on the street, on a [...] PM CDT 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 Do not crush or chew. 100 tablet 3 04/18/2024 [id number]-wwcf-[id number] A (Vinate One) 60 mg iron-1 mg per tablet Take 1 tablet by mouth daily. documented as of this encounter Plan of Treatment Not on file documented as of this encounter Goals Goal Patient Goal Type Associated Problems Recent Progress Patient-Stated? Author [facility] Care Plan for Healthy Care Plan [facility] Care Plan for Healthy No Support, [facility] Care [facility] for Healthy No Support, Elinor [facility] NICOTINE CURRENT SMOKER - HEALTHY Care Plan [facility] NICOTINE CURRENT SMOKER - HEALTHY No Patient, Online Services documented as of this encounter Procedures Procedure Name Priority Date/Time Associated Diagnosis Comments CBC WITHOUT DIFFERENTIAL, B Routine 10/08/2024 11:39 AM CDT Anemia (HCC) documented in this encounter Results * (ABNORMAL) CBC without [...] Jr., M.D. LAB BLOOD ADD-ON Final Result [facility] [address] [place] [address], [place] OW[place] [facility] in [place] [address] [place] [address] documented in this encounter Visit Diagnoses Diagnosis Anemia (HCC) documented in this encounter Additional Health Concerns Active Problems Noted Date Diagnosed Date [facility] Care Plan for Healthy 04/06 [facility] CURRENT SMOKER - HEALTHY PREGNA NCY 04/23/2024 Assessment Noted Time PHQ-9 Depression Total Score: 2 08/06/19 25 10:55 AM CDT documented as of this encounter Care Teams Sales Representative Public Utilities Relationship Specialty Start Date End Date None Reported, Pcp PCP - General Family Medicine 06/06/24 documented as of this encounter
[2024-10-19] VITALS (120 sets, daily range): BP systolic 111–182; BP diastolic 60–97; PULSE 56–121; RESP 16–18; TEMP 36.6–37.1; O2SAT 93–100; BMI 19.2
--- OUTSIDE RECORDS SUMMARY | 2024-10-19 07:15 | XMS_ITS | Encounter Summary ---
Author Organization [facility] Address [address] [place] [address] Care Team Providers Care Drywall Taper Name Role Phone None Reported, Pcp Primary Care Provider Unavail able Encounter Details Date Type Department Care Team (Late st Contact Info) Description 09/04/2024 Orders Only Department of Obstetrics and Gynecology in [place], [place] [address] [place] [phone] lAban Haas Jr., M.D. [address] [place] [phone] Complication Underweight (HCC) (Primary Dx); Encounter For Supervision Of Normal First Unspecified Trimester (HCC) Social History Tobacco Use Types Packs/Day Years Used Date Smoking Tobacco: Never Passive Smoke Exposure: Current Smokeless Tobacco: Never Comments:Vaping discontinued 03/08/2024 Alcohol Use Standard Drinks/Week Comments Never 0 (1 standard drink = 0.6 oz pur e alcohol) [facility] Utilities Answer Date Recorded In the past 12 months has [facility] [employer], gas, oil, or water [employer] threatened to shut off services in your [...] PM CDT Legal Sex Female 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 Author [facility] Care Plan for Healthy Care Plan [facility] Care Plan for Healthy No Support, Elinor [facility] - Nicotine Dependency Chronic Care Plan [facility] Care Plan for Healthy No Support, Elinor [facility] NICOTINE CURRENT SMOKER - HEALTHY Care Plan [facility] NICOTINE CURRENT SMOKER - HEALTHY No Patient, Online Services documented as of this encounter Visit Diagnoses Diagnosis Complication Underweight (HCC)- Primary Encounter For Supervision Of Normal First Unspecified Trimester (HCC) documented in this encounter Additional Health Concerns Active Problems Noted Date Diagnosed Date [facility] Care Plan for Healthy 04/06 [facility] NICOTINE CURRENT SMOKER - HEALTHY PREGNA NCY 04/23/2024 Assessment Noted Time PHQ-9 Depression Total Score: 2 08/06/19 25 10:55 AM CDT documented as of this encounter Care Teams Drywall Taper Relationship Specialty Start Date End Date None Reported, Pcp PCP - General Family Medicine 06/06/24 documented as of this encounter
--- OUTSIDE RECORDS SUMMARY | 2024-10-19 07:16 | XMS_ITS | Encounter Summary ---
Author Organization [facility] Address [address] [place] [address] Care Team Providers Care Hand Hose Cutter Name Role Phone None Reported, Pcp Primary Care Provider Unavail able Encounter Details Date Type Department Care Team (Late st Contact Info) Description 09/24/2024 Orders Only Department of Obstetrics and Gynecology in [place], [place] [address] [place] [phone] Alban Haas Jr., M.D. 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 Author [facility] Care Plan for Healthy Care Plan [facility] Care Plan for Healthy No Support, Elinor [facility] - Nicotine Dependency Chronic Care Plan [facility] Care Plan for Healthy No Support, Elinor [facility] NICOTINE CURRENT SMOKER - HEALTHY Care Plan [facility] NICOTINE CURRENT SMOKER - HEALTHY No Patient, Online Services documented as of this encounter Visit Diagnoses Not on filedocumented in this encounter Additional Health Concerns Active Problems Noted Date Diagnosed Date [facility] Care Plan for Healthy 04/06 [facility] NICOTINE CURRENT SMOKER - HEALTHY PREGNA NCY 04/23/2024 Assessment Noted Time PHQ-9 Depression Total Score: 2 08/06/19 10:55 AM CDT documented as of this encounter Care Teams Hand Hose Cutter Relationship Specialty Start Date End Date None Reported, Pcp PCP - General Family Medicine 06/06/24 documented as of this encounter
--- OUTSIDE RECORDS SUMMARY | 2024-10-19 07:16 | XMS_ITS | Encounter Summary ---
Author Organization [facility] Address [address] [place] [address] Care Team Providers Care Cellular Equipment Installer Name Role Phone None Reported, Pcp Primary Care Provider Unavail able Encounter Details Date Type Department Care Team (Late st Contact Info) Description 09/16/2024 Orders Only Department of Obstetrics and Gynecology in [place], [place] [address] [place] [phone] Alban Haas Jr., M.D. 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 Author [facility] Care Plan for Healthy Care Plan [facility] Care Plan for Healthy No Support, Elinor [facility] - Nicotine Dependency Chronic Care Plan [facility] Care Plan for Healthy No Support, Elinor [facility] NICOTINE CURRENT SMOKER - HEALTHY Care Plan [facility] NICOTINE CURRENT SMOKER - HEALTHY No Patient, Online Services documented as of this encounter Visit Diagnoses Not on filedocumented in this encounter Additional Health Concerns Active Problems Noted Date Diagnosed Date [facility] Care Plan for Healthy 04/06 [facility] NICOTINE CURRENT SMOKER - HEALTHY PREGNA NCY 04/23/2024 Assessment Noted Time PHQ-9 Depression Total Score: 2 08/06/19 10:55 AM CDT documented as of this encounter Care Teams Cellular Equipment Installer Relationship Specialty Start Date End Date None Reported, Pcp PCP - General Family Medicine 06/06/24 documented as of this encounter
--- OUTSIDE RECORDS SUMMARY | 2024-10-19 07:16 | XMS_ITS | Encounter Summary ---
Author Organization [facility] Address [address] [place] [address] Care Team Providers Care Manager Operations Research Name Role Phone None Reported, Pcp Primary Care Provider Unavail able Encounter Details Date Type Department Care Team (Late st Contact Info) Description 10/01/2024 Orders Only Department of Obstetrics and Gynecology in [place], [place] [address] [place] [phone] Alban Haas Jr., M.D. [address] [place] [phone] Social History Tobacco Use Types Packs/Day Years Used Date Smoking Tobacco: Never Passive Smoke Exposure: Current Smokeless Tobacco: Never Comments:Vaping discontinued 03/08/2024 Alcohol Use Standard Drinks/Week Comments Never 0 (1 standard drink = 0.6 oz pur e alcohol) [facility] Utilities Answer Date Recorded In the past 12 months has e electric, gas, oil, or water [employer] threatened to shut off services in your [...] with others, in a hotel, in a [facility], living outside on the street, on a [...] PM CDT 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 Author [facility] Care Plan for Healthy Care Plan [facility] Care Plan for Healthy No Support, Elinor [facility] - Nicotine Dependency Chronic Care Plan [facility] Care Plan for Healthy No Support, Elinor [facility] NICOTINE CURRENT SMOKER - HEALTHY Care Plan [facility] NICOTINE CURRENT SMOKER - HEALTHY No Patient, Online Services documented as of this encounter Visit Diagnoses Not on filedocumented in this encounter Additional Health Concerns Active Problems Noted Date Diagnosed Date [facility] Care Plan for Healthy 04/06 [facility] N[facility] CURRENT SMOKER - HEALTHY PREGNA NCY 04/23/2024 Assessment Noted Time PHQ-9 Depression Total Score: 2 08/06/19 10:55 AM CDT documented as of this encounter Care Teams Manager Operations Research Relationship Specialty Start Date End Date None Reported, Pcp PCP - General Family Medicine 06/06/24 documented as of this encounter
--- OUTSIDE RECORDS SUMMARY | 2024-10-19 07:17 | XMS_ITS | Encounter Summary ---
Author Organization [facility] [place] Address [address] [place] [address] Care Team Providers Care Meat Cutting Teacher Name Role Phone None Reported, Pcp Primary Care Provider Unavail able Encounter Details Date Type Department Care Team (Latest Contact Info) Description 10/08/2024 Results Follow-Up Department of Obstetrics and Gynecology in [place], [place] [address] [place] [phone] Alban Haas Jr., M.D. [address] [place] [phone] CBC without Differential Social History Tobacco Use Types Packs/Day Years Used Date Smoking Tobacco: Never Passive Smoke Exposure: Current Smokeless Tobacco: Never Comments:Vaping discontinued 03/08/2024 Alcohol Use Standard Drinks/Week Comments Never 0 (1 standard drink = 0.6 oz pur e alcohol) [facility] Utilities Answer Date Recorded In the past 12 months has [facility] [employer], gas, oil, or water [employer] threatened to shut off services in your [...] with others, in a hotel, in a prison, living outside on the street, on a [...] PM CDT Legal Sex Female 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 Author [facility] [place] Care Plan for Healthy Care Plan [facility] [place] Care Plan for Healthy No SupportElinor [facility] - Nicotine Dependency Chronic Care Plan [facility] [place] Care Plan for Healthy No Support, Elinor [facility] NICOTINE CURRENT SMOKER - HEALTHY Care Plan [facility] NICOTINE CURRENT SMOKER - HEALTHY No Patient, Online Services documented as of this encounter Visit Diagnoses Not on filedocumented in this encounter Additional Health Concerns Active Problems Noted Date Diagnosed Date [facility] [place] Care Plan for Healthy 04/06 [facility] NICOTINE CURRENT SMOKER - HEALTHY PREGNA NCY 04/23/2024 Assessment Noted Time PHQ-9 Depression Total Score: 2 08/06/19 10:55 AM CDT documented as of this encounter Care Teams Meat Cutting Teacher Relationship Specialty Start Date End Date None Reported, Pcp PCP - General Family Medicine 06/06/24 documented as of this encounter
--- OUTSIDE RECORDS SUMMARY | 2024-10-19 07:17 | XMS_ITS | Encounter Summary ---
Author Organization [facility] Address [address] [place] [address] Care Team Providers Care Wire Setter Name Role Phone None Reported, Pcp Primary Care Provider Unavail able Encounter Details Date Type Department Care Team (Late st Contact Info) Description 10/07/2024 Orders Only Department of Obstetrics and Gynecology in [place], [place] [address] [place] [phone] Alban Haas Jr., M.D. 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 Author [facility] Care Plan for Healthy Care Plan [facility] Care Plan for Healthy No Support, Elinor [facility] - Nicotine Dependency Chronic Care Plan [facility] Care Plan for Healthy No Support, Elinor [facility] NICOTINE CURRENT SMOKER - HEALTHY Care Plan [facility] NICOTINE CURRENT SMOKER - HEALTHY No Patient, Online Services documented as of this encounter Visit Diagnoses Not on filedocumented in this encounter Additional Health Concerns Active Problems Noted Date Diagnosed Date [facility] Care Plan for Healthy 04/06 [facility] NICOTINE CURRENT SMOKER - HEALTHY PREGNA NCY 04/23/2024 Assessment Noted Time PHQ-9 Depression Total Score: 2 08/06/19 10:55 AM CDT documented as of this encounter Care Teams Wire Setter Relationship Specialty Start Date End Date None Reported, Pcp PCP - General Family Medicine 06/06/24 documented as of this encounter
--- OUTSIDE RECORDS SUMMARY | 2024-10-19 07:18 | XMS_ITS | Encounter Summary ---
Author Organization [facility] Address [address] [place] [address] Care Team Providers Care Nuclear Physics Professor Name Role Phone None Reported, Pcp Primary Care Provider Unavail able Encounter Details Date Type Department Care Team (Late st Contact Info) Description 10/14/2024 Orders Only Department of Obstetrics and Gynecology in [place], [place] [address] [place] [phone] Alban Haas Jr., M.D. [address] [place] [phone] Social History Tobacco Use Types Packs/Day Years Used Date Smoking Tobacco: Never Passive Smoke Exposure: Current Smokeless Tobacco: Never Comments:Vaping discontinued 03/08/2024 Alcohol Use Standard Drinks/Week Comments Never 0 (1 standard drink = 0.6 oz pur e alcohol) [facility] Utilities Answer Date Recorded In the past 12 months has e electric, gas, oil, or water [employer] threatened to shut off services in your [...] with others, in a hotel, in a assisted, living outside on the street, on a [...] PM CDT Legal Sex Female 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 Author [facility] Care Plan for Healthy Care Plan [facility] Care Plan for Healthy No Support, Elinor [facility] - Nicotine Dependency Chronic Care Plan [facility] Care Plan for Healthy No Support, Elinor [facility] NICOTINE CURRENT SMOKER - HEALTHY Care Plan [facility] NICOTINE CURRENT SMOKER - HEALTHY No Patient, Online Services documented as of this encounter Visit Diagnoses Not on filedocumented in this encounter Additional Health Concerns Active Problems Noted Date Diagnosed Date [facility] Care Plan for Healthy 04/06 [facility] N[facility] CURRENT SMOKER - HEALTHY PREGNA NCY 04/23/2024 Assessment Noted Time PHQ-9 Depression Total Score: 2 08/06/19 10:55 AM CDT documented as of this encounter Care Teams Nuclear Physics Professor Relationship Specialty Start Date End Date None Reported, Pcp PCP - General Family Medicine 06/06/24 documented as of this encounter
--- OUTSIDE RECORDS SUMMARY | 2024-10-19 07:19 | XMS_ITS | Clinical Summary ---
Author Organization [facility] Address [address] [place] [address] Care Team Providers Care Land Checker Name Role Phone None Reported, Pcp Primary Care Provider Unavail able Source Comments Patient records contain information from all sites at [facility]. For routine questions regarding patient records, call [phone] during business hours, M-F 8:00 AM - 5:00 PM Central Time. Record requests for emergency care only can be directed to [phone] at any time.[facility] Allergies Active Allergy Reactions Criticality Noted Date Comments Cat Dander Itching Low 10/21/2022 Itching and sneezing Crab Anaphylaxis High 10/21/2022 Throat and lips swollen Medications * This document contains information received from the source organization and may not represent a complete record from that organization. [id number] FA (Vinate One) 60 mg iron-1 mg per tablet Take 1 tablet by mouth daily. Active iron,carbonyl-vi tamin C (Vitron-C) 65 mg iron- [address] tablet Take 1 tablet (65 mg of iron total) by mouth every other day. Do not crush or chew. 100 tablet 3 04/18/2024 Active Active Problems Patient Care Coordination No te Formatting of this note migh t be different from the original. SAB in 2023 Dating: LMP c/w 8 wk US FOB: [place] (significant other) Employment: Applying for new job, current residential solar sales consultant Blood type: ____ (antibodies ____) Carrier Screening: Declined Aneuploidy screening: Ordered Rubella Varicella Hep B Covid Vaccine: Considering Influenza vaccine: Considering Pap Due: Next visit LDASA: discuss at next visit Pre BMI: 16 anatomy scan: OGTT: Hb at 28 weeks: Tdap: Rhogam?: PHQ at 28 weeks: GBS: PPBC: Presentation at 36 wks: Feeding plan: Breast pump: Colostrum collection: Delivery Plan: Problem Noted Date Diagnosed Date Encounter For Screening For Macr osomia 10/08/2024 Overview (10/08/2024): 10/01/2024 ultrasound BIOMETRIC PARAMETERS: BPD: 36 w [...] of labor in the fact that it is encouraging that the baby is starting to engage [...] significant anxiety around this potential vaginal delivery. Anemia 04/23/2024 Overview (10/08/2024): Started on oral iron. Repeat ferritin and CBC ordered 06/10/2024. Consider iron infusion if needed. Patient does complain of restless legs. Hemoglobin 10.1 on 08/05. 10/08/2024: CBC repeated Complication Underweight 03/18/2024 Overview (10/01/2024): Prepregnancy BMI 16. Public Health/WIC consult placed. Nutrition consult ordered. 04/18/2024: Patient gaining weight appropriately and believes she is eating well. Good growth. 07/09/2024: 10 kg of weight gain so far this at 24 weeks. 10/01/2024 Growth >95%ile Has a appointments through 39 weeks. Encounter For Supervision Of Normal First Unspecified Trimester 03/18/2024 Overview (10/01/2024): Images from the original note were not included. Dating: LMP 5d discrep w/ 8 week [...] abdominal circumference. Cephalic presentation and normal fluid. Depressive Disorder Overview (03/18/2024): PHQ with NOB=3. Stable off meds, no acute concerns. Estimated Date of Delivery Comme nts Yes 10/28/2024 Based on last me nstrual period of 01/22/2024 (Exact Date) Resolved Problems Problem Noted Date Diagnosed Date Resolved Date Underweight 08/08/2023 03/18/2024 Fatigue 10/21/2022 03/18/2024 Bleeding Dysfunctional Uterine 04/05/2022 03/18/2024 Overview (04/05/2022): GC chlamydia obtained. I will plan to send her a message with results. Pelvic ultrasound ordered and scheduled. I will send her a portal message with results and recommendations. She is interested in initiating the control pill to regulate her cycles. She is no contraindications and safety as well as proper use was discussed. Prescription faxed to her pharmacy. Anxiety Generalized Disorder 03/18/2024 Encounters Date Type Department Care Team Description 10/14/2024 Orders Only Department of Obstetrics and Gynecology in [place], [place] [address] [place] [address] Alban Haas Jr., M.D. 10/08/2024 11:10 AM CDT - 10/08/2024 11:59 PM CDT Hospital Encounter Department of Laboratory Medicine in [address] [address] Alban Haas Jr., M.D. Anemia (HCC) Discharge Disposition: Home or Self Care 10/08/2024 10:30 AM CDT Routine Department of Obstetrics and Gynecology in [address] [address] Alban Haas Jr., M.D. Anemia (HCC) (Primary Dx); Encounter For Screening For Macrosomia (HCC); Encounter For Supervision Of Normal First Unspecified Trimester (HCC) 10/08/2024 Results Follow-Up Department of Obstetrics and Gynecology in [address] [address] Alban Haas Jr., M.D. CBC without Differential 10/07/2024 Orders Only Department of Obstetrics and Gynecology in [address] [address] Alban Haas Jr., M.D. 10/01/2024 4:00 PM CDT Routine Department of Obstetrics and Gynecology in [address] [address] Alban Haas Jr., M.D. Encounter For Supervision Of Normal First Unspecified Trimester (HCC) (Primary Dx); Complication Underweight (HCC) 10/01/2024 3:00 PM CDT Ancillary Procedure Department of Obstetrics and Gynecology in [address] [phone] Alban Haas Jr., M.D. Complication Underweight (HCC); Encounter For Supervision Of Normal First Unspecified Trimester (HCC) 10/01/2024 Orders Only Department of Obstetrics and Gynecology in [address] [address] Alban Haas Jr., M.D. 09/24/2024 Orders Only Department of Obstetrics and Gynecology in [place], [place] [address] [place] [phone] Alban Haas Jr., M.D. 09/18/2024 9:15 AM CDT Routine Department of Obstetrics and Gynecology in [address] [address] Alban Haas Jr., M.D. Encounter For Supervision Of Normal First Unspecified Trimester (HCC) (Primary Dx) 09/16/2024 Orders Only Department of Obstetrics and Gynecology in [address] [address] Alban Haas Jr., M.D. 09/05/2024 11:00 AM CDT Routine Department of Obstetrics and Gynecology in [address] [address] Alban Haas Jr., M.D. Anemia (HCC) (Primary Dx); Encounter For Supervision Of Normal First Unspecified Trimester (HCC) 09/04/2024 Orders Only Department of Obstetrics and Gynecology in [address] [address] Alban Haas Jr., M.D. Complication Underweight (HCC) (Primary Dx); Encounter For Supervision Of Normal First Unspecified Trimester (HCC) 08/20/2024 10:00 AM CDT Routine Department of Obstetrics and Gynecology in [place], [place] [address] [place] [phone] Alban Haas Jr., M.D. Encounter For Supervision Of Normal First Unspecified Trimester (HCC) (Primary Dx) 08/20/2024 9:30 AM CDT Ancillary Procedure Department of Obstetrics and Gynecology in [address] [address] Alban Haas Jr., M.D. Complication Underweight (HCC); Encounter For Supervision Of Normal First Unspecified Trimester (HCC) Discharge Disposition: Home or Self Care 08/18/2024 Orders Only Department of Obstetrics and Gynecology in [address] [address] Alban Haas Jr., M.D. 08/05/2024 11:25 AM CDT - 08/05/2024 11:59 PM CDT Hospital Encounter Department of Laboratory Medicine in [address] [address] Alban Haas Jr., M.D. Encounter For Supervision Of Normal First Unspecified Trimester (HCC) Discharge Disposition: Home or Self Care 08/05/2024 10:30 AM CDT Routine Department of Obstetrics and Gynecology in [address] [address] Alban Haas Jr., M.D. [place], Jennifer L, R.N. Administrative Encounter No Exam (Primary Dx); Complication Underweight (HCC); Encounter For Supervision Of Normal First Unspecified Trimester (HCC); Need Vaccine Immunization Tetanus And Diphtheria Toxoids And Pertussis 08/05/2024 Orders Only Department of Obstetrics and Gynecology in [address] [address] Alban Haas Jr., M.D. from Last 3 Months Immunizations Immunization Administration Dates Next Due DTaP (Daptacel) 09/27/2007,2002 DTaP (Infanrix, Tripedia) 02/23/2005,,05/21/2003,2002 DTaP / Hep B / IPV (Pediarix) 12/02/2004, 004 HepA Pediatric/Adolescent 10/16/2014 HepB, Unspecified 05/21/2003,2002,02/18/19 03 Hib (HbOC) (discontinued) 05/21/2003 Hib, Unspecified 05/21/2003,2002, 3 Hib-HepB 2002 IPV 09/27/2007, 5,05/21/2003,2002 MCV4 (Menactra)(Discontinued) 10/16/2014 MMR 09/27/2007,12/02/2004 PCV7 (discontinued) 02/23/2005, 5,05/21/2003,2002 PPSV23 02/23/2005, 5,05/21/2003,2002 Tdap 08/05/2024,10/16/2014 CHRISTOPHER 09/27/2007,12/02/2004 influenza trivalent LAIV (Na amor) (2 years through 49 years) 11/05/2013 Family History Medical History Relation Name Comments Anxiety disorder Brother 1 Rese Anxiety disorder Father Walter Meng Cancer Maternal Grandmother lyjmph node ca Maternal Grandmother Miscarriages / Stillbirths Mother Narda Meng in 2006 Anxiety disorder Sister Alonzo Migraines Sister Alonzo Relation Name Status Comments Brother 1 Rese Alive Brother 2 Arnoldo Alive Brother 3 Ganga Alive Father Walter Meng Alive Maternal Grandmother Mother Narda Meng car accident Sister Alonzo Alive Social History Tobacco Use Types Packs/Day Years Used Date Smoking Tobacco: Never Passive Smoke Exposure: Current Smokeless Tobacco: Never Tobacco Cessation:Counseling Given: Not Answered Comments:Vaping discontinued 03/08/2024 Alcohol Use Standard Drinks/Week Comments Never 0 (1 standard drink = 0.6 oz pur e alcohol) [facility] Utilities Answer Date Recorded In the past 12 months has e [employer], oil, or water [employer] threatened to shut off services in your [...] with others, in a hotel, in a jail, living outside on the street, on a [...] PM CDT Legal Sex Female 11:13 AM HEAD CUSTODIAN Gender Identity Female 10/05/2020 2:19 PM CDT Sexual Orientation Not on file Last Filed Vital Signs Vital Sign Reading Time Taken Comments Blood Pressure 117/74 10/08/2024 10:19 AM CDT Pulse 84 10/08/2024 10:19 AM CDT Temperature 36.4 C (97.6 F) 02/23/2024 9:11 AM HEAD CUSTODIAN Respiratory Rate 16 07/25/2023 5:20 PM CDT Oxygen Saturation - - Inhaled Oxygen Concentration - - Weight 56.1 kg (123 lb 10.9 oz) 025 10:19 AM CDT Height 163 cm (5' 4.17) 04/18/2024 3:04 PM CDT Body Mass Index 21.11 04/18/2024 3:04 PM CDT Plan of Treatment Health Maintenance Due Date Last Done Comments Cervical/Vaginal Cancer Screening 2002 HPV Vaccines (1 - 3-dose series) 2017 COVID-19 Vaccine ( - season) 2024 Influenza Vaccine (#1) 2024 11/05/2013 Depression Monitoring (PHQ-9) 12/05/2024 08/05/2024 Chlamydia and Gonorrhea Screening 03/18/2025 03/18/2024, 04/05/2022 DTaP,Tdap,and Td Vaccines (7 - Td or Tdap) 08/05/2034 08/05/2024, 10/16/2014, 09/27/2007, Additional history exists Hepatitis B Vaccines Completed 12/02/2004, 05/21/2003, 05/21/2003, Additional history exists Pneumococcal vaccine (0-49 years) Aged Out 02/23/2005, 02/23/2005, 12/02/2004, Additional history exists No longer eligible based on patient's age to complete this topic IPV Vaccines Completed 09/27/2007, 11/07, 12/02/2004, Additional history exists Varicella Vaccines Completed 09/27/2007, 12/02/2004 Meningococcal Vaccine Aged Out 10/16/2014 No harpal jag eligible based on patient's age to complete this topic HIV Screening Completed 04/20/2024, 10/05/2020 Hepatitis C Screening Completed 04/20/2024 Depression Monitoring (PHQ-9 for quality tracking) Completed 08/05/2024 Tdap vaccine - (27-36 weeks) Completed 08/05/2024, 10/16/2014, 09/27/2007, Additional history exists RSV vaccine - (32-36 weeks) or 60+ years (No Doses Required) Completed Goals Goal Patient Goal Type Associated Problems Recent Progress Patient-Stated? Author [facility] Care Plan for Healthy Care Plan [facility] Care Plan for Healthy No Support, Elinor Tadeo Care Plan - Nicotine Dependency Chronic Care Plan [facility] Care Plan for Healthy No Support, Elinor [facility] NICOTINE CURRENT SMOKER - HEALTHY Care Plan [facility] NICOTINE CURRENT SMOKER - HEALTHY No Patient, Online Services Procedures Procedure Name Priority Date/Time Associated Diagnosis Comments CBC WITHOUT DIFFERENTIAL, B Routine 10/08/2024 11:39 AM CDT Anemia (HCC) US OB [place] RAD - Routine (most inpatients and all outpatients) 10/01/2024 3:30 PM CDT Complication Underweight (HCC) Encounter For Supervision Of Normal First Unspecified Trimester (HCC) GROUP B STREP (S. AGALACTIAE), PCR Routine 10/01/2024 3:29 PM CDT Encounter For Supervision Of Normal First Unspecified Trimester (HCC) US OB [place] RAD - Routine (most inpatients and all outpatients) 08/20/2024 9:26 AM CDT Complication Underweight (HCC) Encounter For Supervision Of Normal First Unspecified Trimester (HCC) GLUCOSE OLIVIA, 1HR, S/P Routine 08/05/2024 11:30 AM CDT Encounter For Supervision Of Normal First Unspecified Trimester (HCC) CBC WITHOUT DIFFERENTIAL, B Routine 08/05/2024 11:30 AM CDT Encounter For Supervision Of Normal First Unspecified Trimester (HCC) SYPHILIS TOTAL AB W/ REFLEX S Routine 08/05/2024 11:30 AM CDT Encounter For Supervision Of Normal First Unspecified Trimester (HCC) HCV AB SCRN , S Routine 04/20/2024 10:25 AM CDT Examination Test With Positive Result (HCC) HIV-1/-2 AG AND AB SCRN, PLASMA Routine 04/20/2024 10:25 AM CDT Examination Test With Positive Result (HCC) CHLAMYDIA/GONORRH OEAE AMPLIFIED RNA Routine 03/18/2024 1:51 PM HEAD CUSTODIAN Encounter For Supervision Of Normal First Unspecified Trimester (HCC) from Last 3 Months or Most Recently Relevant to Health Maintenance Results * (ABNORMAL) CBC without Differential (10/08/2024 11:39 AM CDT) Only the most recent of2 resultswithin the time period is included. Hemoglobin 10.1(L) 11.6 - 15.0 g/dL 10/08/2024 [...] Jr., M.D. LAB BLOOD ADD-ON Final Result [facility] [address] [place] [address], [facility] in [place] [address] [place] [address] * US OB [place] (10/01/2024 3:30 PM CDT) Only the most recent of2 resultswithin the time period is included. Anatomical Region Laterality Modality Body, Ultrasound OB [...] --Cephalic presentation with normal amniotic fluid volume. Alban Haas Jr., M.D. IMG OB US PROCEDURES F inal Result * Group B Strep (S. agalactiae), PCR (10/01/2024 3:29 PM CDT) Grp B Strep (S. agalactiae), PCR Negative Negative 10/02/2024 2:12 PM CDT [facility] Swab (Vagina-Rectum) 10/01/2024 3:29 PM CDT 10/01/2024 6:54 PM CDT Alban Haas Jr., M.D. LAB MICROBIOLOGY - GEN ERAL ORDERABLES Final Result [facility] [address] [place] [address], [place] [address] * Syphilis Total Antibody with Reflex, S ([facility]) (08/05/2024 11:30 AM CDT) Syphilis Total Ab w/ Reflex Nonreactive Nonreactive 08/06/2024 12:34 PM CDT [facility] Comment: No serologic evidence of infection with T. pallidum (syphilis). Repeat testing may be considered in patients with suspected acute or primary syphilis in 2-4 weeks. For additional information on interpretation of the syphilis reverse algorithm and results, see: [email or web address] Blood (Blood, Venous) 08/05/2024 11:30 AM CDT 08/06/2024 10:44 AM CDT Ablan Haas Jr., M.D. LAB BLOOD ADD-ON Final Result Performing Organization Address City/[facility]/ZIP Co de Phone Number [facility] [address] [place] [address], [place] [facility] [place] [address] [place] [address] * Glucose Tolerance Test, 1 hour (08/05/2024 11:30 AM CDT) Glucose Olivia, 1 Hr, P 100 <140 mg/dL 08/05/2024 12:06 PM CDT OW Blood (Blood, Venous) 08/05/2024 11:30 AM CDT 08/05/2024 11:43 AM CDT Alban Haas Jr., M.D. LAB BLOOD NON ADD-ON F inal Result Performing Organization Address [facility] Co de Phone Number [facility] [address] [place] [address], [place] [facility] [facility] [place] [address] [place] [address] * Hepatitis C Virus Antibody Screen (04/20/2024 10:25 AM CDT) HCV Ab Scrn , S Negative Negative 04/22/2024 9:22 AM CDT [facility] Comment: Consumption of high-dose biotin supplement within 12 hours of blood collection for this test can cause false-negative results. Blood (Blood, Venous) 04/20/2024 10:25 AM CDT 04/22/2024 7:09 AM CDT Marline Cota CNM, D.N.P. LAB MICROBIOLOGY - BL OOD ORDERABLES Final Result Performing Organization Address City/[facility]/ZIP Co de Phone Number [facility] [address] [place] [address] [facility] [address] [place] [address] * HIV-1/-2 Ag and Ab Scrn, Plasma (04/20/2024 10:25 AM CDT) HIV Ag/Ab Scrn, P Negative Negative 04/22/2024 7:49 AM CDT [facility] Comment: Negative result does not rule out HIV infection. If exposure to HIV infection occurred <14 days ago, contact the laboratory to request addition of HIV-1/HIV-2 RNA detection , Plasma (HPP12). HIV-1 p24 Ag Scrn, P Negative Negative 04/22/2024 7:49 AM CDT [facility] Comment: Negative result does not rule out HIV infection. If exposure to HIV infection occurred <14 days ago, contact the laboratory to request addition of HIV-1/HIV-2 RNA detection , Plasma (HPP12). HIV-1 Ab Scrn, P Negative Negative 04/22/2024 7:49 AM CDT [facility] Comment: Negative result does not rule out HIV infection. If exposure to HIV infection occurred <14 days ago, contact the laboratory to request addition of HIV-1/HIV-2 RNA detection , Plasma (HPP12). HIV-2 Ab Scrn, P Negative Negative 04/22/2024 7:49 AM CDT [facility] Comment: Negative result does not rule out HIV infection. If exposure to HIV infection occurred <14 days ago, contact the laboratory to request addition of HIV-1/HIV-2 RNA detection , Plasma (HPP12). Blood (Blood, Venous) 04/20/2024 10:25 AM CDT 04/21/2024 9:45 PM CDT us Marline Cota CNM, D.N.P. LAB MICROBIOLOGY - BL OOD ORDERABLES Final Result [facility] [address] [place] [address], [place] [facility] [place] [address] [place] [address] * Chlamydia / Gonorrhoeae Amplified RNA (03/18/2024 1:51 PM HEAD CUSTODIAN) Source Swab, Vagina 03/18/2024 5:58 PM HEAD CUSTODIAN [facility] Chlamydia trachomatis amplified RNA Negative Negative 03/18/2024 5:58 PM HEAD CUSTODIAN [facility] Source Swab, Vagina 03/18/2024 5:58 PM HEAD CUSTODIAN [facility] Neisseria gonorrhoeae amplified RNA Negative Negative 03/18/2024 5:58 PM HEAD CUSTODIAN [facility] Swab (Vagina) 03/18/2024 1:5 1 PM HEAD CUSTODIAN 03/18/2024 1:51 PM HEAD CUSTODIAN us Mraline Cota CNM, D.N.P. LAB MICROBIOLOGY - [facility] ORDERABLES Final Result [facility] [address] [place] [address], [facility] [address] [address] from Last 3 Months or Most Recently Relevant to Health Maintenance Additional Health Concerns Active Problems Noted Date Diagnosed Date [facility] Care Plan for Healthy 04/06 [facility] NICOTINE CURRENT SMOKER - HEALTHY PREGNA NCY 04/23/2024 Insurance [facility] [address] [address] Care Teams Land Checker Relationship Specialty Start Date End Date None Reported, Pcp PCP - General Family Medicine 06/06/24
--- OUTSIDE RECORDS SUMMARY | 2024-10-19 07:19 | XMS_ITS | Encounter Summary ---
Author Organization [facility] Address [address] [place] [address] Care Team Providers Care Packing Machine Can Feeder Name Role Phone None Reported, Pcp Primary Care Provider Unavail able Encounter Details Date Type Department Care Team (Late st Contact Info) Description 10/06/2022 Orders Only [facility] [address] [place] [phone] [facility], Provider, Screening Test Laboratory Social History Tobacco Use Types Packs/Day Years Used Date Smoking Tobacco: Never Smokeless Tobacco: Never Alcohol Use Standard Drinks/Week Comments Never 0 (1 standard drink = 0.6 oz pur e alcohol) Humiliation, Afraid, Rape, and Kick questionnair e [...] you got the money to buy more. Sometimes true Within the past 12 months, t he food you bought just didn't last and you didn't have money to get more. Never true PRAPARE - Transportation Answer Date Re corded In the past 12 months, has l ack of transportation kept you from medical appointments or from getting medications? Yes 03/10 In the past 12 months, has l ack of transportation kept you from meetings, work, or from getting things needed for daily living? Yes 03/31/2022 Housing Stability Vital Sign Answer Pranav e Recorded In the last 12 months, was t here a time when you were not able to pay the mortgage or rent on time? Yes 03/31/2022 In the last 12 months, how many places have you lived? 2 03/31/2022 In the last 12 months, was t here a time when you did not have a steady place to sleep or slept in a skilled nursing (including now)? No 03/31/2022 Depression Answer Date Recor ded PHQ-9 Total Score (max 27) 15 12/01 Education Answer Date Recorded What is the highest level of school you have completed or the highest degree you have received? 11th grade 10/05/2020 Comments Unknown Sex and Gender Information Value Date Recorded Sex Assigned at Female 10/05/2020 2:19 PM CDT Legal Sex Female 11:13 AM APPLICATIONS ENGINEER MANUFACTURING Gender Identity Female 10/05/2020 2:19 PM CDT Sexual Orientation Not on file documented as of this encounter Plan of Treatment Not on file documented as of this encounter Visit Diagnoses Diagnosis Screening Test Laboratory documented in this encounter Additional Health Concerns Assessment Noted Time PHQ-9 Depression Total Score: 15 021 3:00 PM CDT documented as of this encounter Care Teams Packing Machine Can Feeder Relationship Specialty Start Date End Date None Reported, Pcp PCP - General Family Medicine 06/06/24 documented as of this encounter
--- OUTSIDE RECORDS SUMMARY | 2024-10-19 07:19 | XMS_ITS | Clinical Summary ---
Author Organization [facility] Address [address] [place] [id number] Care Team Providers Care Veterinary Technician Assistant Name Role Phone Pcp, No Primary Care Provider Unavailabl e Allergies Active Allergy Reactions Criticality Noted Date Comments Cat Dander Itching Low 10/21/2022 Itching and sneezing Crab Anaphylaxis High 10/21/2022 Throat and lips swollen Shellfish Derived Hives 09/05/2023 Medications No known medications Active Problems Problem Noted Date Diagnosed Date Underweight 08/08/2023 Fatigue 10/21/2022 Abnormal uterine bleeding 04/05/2022 Overview (09/05/2023): GC chlamydia obtained. I will plan to send her a message with results. Pelvic ultrasound ordered and scheduled. I will send her a portal message with results and recommendations. She is interested in initiating the control pill to regulate her cycles. She is no contraindications and safety as well as proper use was discussed. Prescription faxed to her pharmacy. Encounters Date Type Department Care Team Description 10/15/2024 Orders Only [facility] Scanner 1 scan: (1-Ord) [facility], MULTIPLE LABS, 10/15/2024 10/14/2024 Orders Only [facility] Scanner 1 scan: (1-Ord) [facility], RESULTS, 10/14/2024 10/14/2024 Orders Only [facility] Scanner 1 scan: (1-Ord) [facility], BLOOD TYPE ANTIBODY SCREEN, 10/14/2024 10/14/2024 Orders Only [facility] Scanner 1 scan: (1-Ord) [facility], RESULTS, 10/14/2024 from Last 3 Months Social History Tobacco Use Types Packs/Day Years Used Date Smoking Tobacco: Never Smokeless Tobacco: Never Tobacco Cessation:Counseling Given: No Alcohol Use Standard Drinks/Week Comments Never 0 (1 standard drink = 0.6 oz pur e alcohol) Interpersonal Safety Answer Date Record ed Are you being hit, kicked, p ushed or yelled at (see row info)? No 05/11/2024 Interpersonal Safety Abuse 12 - 18 Not on file 05/11/2024 Interpersonal Safety Ambulatory Vulnerability No t on file 05/11/2024 Comments Unknown Sex and Gender Information Value Date Recorded Sex Assigned at Not on file Legal Sex Female 7:35 PM CDT Gender Identity Not on file Sexual Orientation Not on file Obstetrics History Para Term AB IAB SAB Ectopic Multiple Livin g Live Births 1 Date Outcome GA Total Labor Labor/2nd/3rd Weight Sex Type Anes PTL Lynne A1 A5 Name Clin Last Filed Vital Signs Vital Sign Reading Time Taken Comments Blood Pressure 126/78 05/11/2024 9:59 PM CDT Pulse 85 05/11/2024 9:59 PM CDT Temperature 37.2 C (99 F) 05/11/2024 9:59 PM CDT Respiratory Rate 16 05/11/2024 9:59 PM CDT Oxygen Saturation 100% 05/11/2024 9:59 PM CDT Inhaled Oxygen Concentration - - Weight 48.1 kg (106 lb) 05/11/2024 9:59 PM CDT Height 162.6 cm (5' 4) 05/11/2024 9:59 PM CDT Body Mass Index 18.19 05/11/2024 9:59 PM CDT Plan of Treatment Health Maintenance Due Date Last Done Comments Tetanus booster 2013 Depression screening for age 12+ 2014 HIV for age 15-65 2017 HPV series for age 9-45 (1 - 3-dose series) 2017 BMI (ht and wt on same day) for age 18+ 02/19/2020 Hepatitis C screening for ag e 18-79 02/19/2020 Hepatitis B series for 19+ ( 1 of 3 - 19+ 3-dose series) 2021 Pap test for age 21-65 2023 COVID-19 vaccine series ( season) 2024 Influenza Vaccine (#1) 2024 RSV vaccine for adults or (1 - 1-dose 75+ series) 2077 Pneumococcal series for age 6-49 Aged Out No longer eligible based on patient's age to complete this topic Procedures Procedure Name Priority Date/Time Associated Diagnosis Comments SCAN-LABORATORY REPORT 10/15/2024 12:00 AM CDT SCAN-LABORATORY REPORT 10/14/2024 12:00 AM CDT SCAN-LABORATORY REPORT 10/14/2024 12:00 AM CDT SCAN-LABORATORY REPORT 10/14/2024 12:00 AM CDT from Last 3 Months Results * SCAN-LABORATORY REPORT (10/15/2024 12:00 AM CDT) Only the most recent of4 resultswithin the time period is included. us Scanner OTHER Final Result from Last 3 Months Insurance [facility] MEDICAID [facility] [place] Care Teams Veterinary Technician Assistant Relationship Specialty Start Date End Date Pcp, No . PCP - General 07/26/21
--- NOTE | 2024-10-19 08:06 | ED_ITS ---
HPI - General Adult General Time Seen by Provider: 08:06 Date Seen: 10/19/24 Chief complaint: Post OB/Post- Complication Stated complaint: headache Time Seen by Provider: 10/19/24 08:04 Source: patient Mode of arrival: ambulatory Limitations: no limitations History of Present Illness HPI narrative: Estella is a 24 year old had a at 38+0 days by LMP c/w 8 wk US no complications presents emergency department via private car with a headache. Patient states she got up around 6:30 a.m. this morning, she was about to feed her baby, she was laying in bed and began to have increased shortness of breath, felt like her heart rate was going slow, she did not have any visual changes but had some tingling around her lips, she had some clammy hands as well, she denies any headache at that time, symptoms progressively got worse to the point where they called EMS. Blood pressure was mildly elevated 160/90's. Patient has not been sleeping well over the last 5 days, she has had increased stress. On our ride to the emergency department she developed a right-sided headache, dull ache, she has had headaches like this in the past, this is not the worse headache of her life. She denies any nausea vomiting, visual changes, she denies any chest pain which had some chest tightness, she denies any abdominal pain. There was no confusion per her significant other. Pain at this time is 5/10. complications were low BMI, pre-preg 16, but has had appropriate weight gain, anemia on oral iron with hgb 10.1on 10/08/24, patient did have some elevated blood pressures prior to delivery but no concerns for any preeclampsia at that time. Patient does not have an OB follow-up here in [place]. Related Data Home Medications ?Medication ?Instructions ?Recorded ?Confirmed ferrous sulfate 325 mg (65 mg 325 mg PO Q48H 10/15/24 10/15/24 iron) tablet (iron) Allergies Allergy/AdvReac Type Severity Reaction Status Date / Time shellfish derived Allergy Intermediate Hives Verified 10/19/24 07:30 Review of Systems Status of ROS: Reports: 10 or more systems reviewed and unremarkable except as noted in History and below PFSH PFSH Social History What is your current living situation?: I have a place to live at present, but am concerned about future Problems where you live: no known problems In the past 12 months, utilities in danger of being shut off: no In past 12 months, lack of transportation kept you from medical appts, meetings, work, or getting things needed for daily living: no In the past 12 mos, have been you worried that your food would run out before you had money to buy more?: sometimes true In the past 12 mos, the food you bought just didn't last and you didn't have money to buy more?: sometimes true Smoking Status: Never smoker Do you use any of these nicotine containing products: None Second hand tobacco smoke exposure: No How often do you have a drink containing alcohol: never AUDIT-C Alcohol total score: 0 Non-prescribed substance use: denies use How often does anyone, including family, friends and others, physically hurt you : never How often does anyone, including family, friends and others, insult or talk down to you: never How often does anyone, including family, friends and others, threaten you with harm: never How often does anyone, including family, friends and others, scream or curse at you: never Health Related Social Needs: housing instability, housed, with risk of homelessness (Z59.811) and food insecurity (Z59.41) Exam Narrative: Exam Narrative: General: No obvious distress laying comfortably HEENT: Pupils equal round reactive to light, extraocular muscles intact Neck: Supple, full range of motion Lungs: Clear to auscultation bilaterally Heart: Normal sinus rhythm S1-S2 Abdomen: Fundus is palpable just below like is, soft nontender to palpation Bowel sounds present Extremities: No lower extremity edema. Neuro: Alert awake and oriented x3 Psych: Mood and affect normal Const: Vital Signs, click to edit/add: Vital Signs - 24 hr 10/19/24 07:21 10/19/24 08:59 10/19/24 09:00 Temperature 98.6 F Pulse Rate 65 60 Pulse Rate [Right] 69 Respiratory Rate 18 Blood Pressure Blood Pressure [Ri ght Upper Arm] 129/86 Pulse Oximetry 100 97 98 Oxygen Delivery Me thod Room Air 10/19/24 09:02 10/19/24 09:15 10/19/24 09:22 Temperature Pulse Rate 62 70 69 Pulse Rate [Right] Respiratory Rate Blood Pressure 137/95 H 132/90 H Blood Pressure [Ri ght Upper Arm] Pulse Oximetry 98 98 98 Oxygen Delivery Me thod 10/19/24 09:42 10/19/24 10:02 10/19/24 10:21 Temperature Pulse Rate Pulse Rate [Right] Respiratory Rate Blood Pressure 137/87 134/91 H 119/63 Blood Pressure [Ri ght Upper Arm] Pulse Oximetry Oxygen Delivery Me thod 10/19/24 10:43 10/19/24 11:47 Temperature Pulse Rate Pulse Rate [Right] Respiratory Rate Blood Pressure 146/79 H 136/95 H Blood Pressure [Ri ght Upper Arm] Pulse Oximetry Oxygen Delivery Me thod Course Course ED Course: ED course: aidet performed, blood pressure here is 129/86, workup will include 0.9 normal saline bolus, 15 mg IV Toradol for headache, will obtain CBC, CMP, INR, and urinalysis, EKG,XR chest PA and lateral physical exam is unremarkable, seems less likely preeclampsia, symptoms seem more related to stress. Will reach out OBGYN to see if we get a follow-up appointment for 6 week follow-up, differential includes preeclampsia, eclampsia, HELLP syndrome, migraine, viral illness, stress, anxiety, less likely arrhythmia, pulmonary embolism. Reevaluation(s) Time of Reevaluation #1: 12:02 Reevaluation #1: Patient was given the above care and her headache resolved, CBC showed chronic anemia at 8.9, mildly decreased from 9.3 from delivery, MCV shows microcytic anemia, no leukocytosis, AST 45, ALT 44, alkaline phosphatase 172, INR within normal limits, LFTs from 7 months ago show significant difference, urinalysis showed trace protein, blood pressures have been running 120s to 140 systolic, 80 to 90s diastolic, patient had 1 blood pressure above 140 systolic, blood pressure at this time is 136/95, chest x-ray showed no acute cardiopulmonary process, at this time consideration for observation and monitoring blood pressure and recheck LFTs, patient also benefit from social work consult. 12:00 PM: This was discussed with [facility] chain saw driver doctor Randy, she does not think patient needs criteria for admission but consider observation for monitoring and possible consideration for labetalol if blood pressures continue to be elevated, she does not believe patient requires magnesium at this time. This was discussed with patient she was in agreement this plan, will plan to admit for observation and likely discharge this afternoon. Vital Signs Vital signs: Initial Vital Signs Temperature 98.6 F 10/19/24 07:21 Temperature Source Temporal Artery Scan 10/19/24 07:21 Pulse Rate 69 10/19/24 07:21 Pulse Rhythm Regular 10/19/24 07:21 Respiratory Rate 18 10/19/24 07:21 Blood Pressure 129/86 10/19/24 07:21 Blood Pressure Mean 100 10/19/24 07:21 Blood Pressure Position Sitting 10/19/24 07:21 Pulse Oximetry 100 10/19/24 07:21 Oxygen Delivery Method Room Air 10/19/24 07:21 Vital Signs Temperature 98.6 F 10/19/24 07:21 Pulse Rate 69 10/19/24 07:21 Respiratory Rate 18 10/19/24 07:21 Blood Pressure 129/86 10/19/24 07:21 Pulse Oximetry 100 10/19/24 07:21 Oxygen Delivery Method Room Air 10/19/24 07:21 Temperature 98.6 F 10/19/24 07:21 Pulse Rate 69 10/19/24 09:22 Respiratory Rate 18 10/19/24 07:21 Blood Pressure 136/95 H 10/19/24 11:47 Pulse Oximetry 98 10/19/24 09:22 Oxygen Delivery Method Room Air 10/19/24 07:21 Medications Administered Medications: Generic Name Dose Route Start Last Admin Trade Name Freq PRN Reason Stop Dose Admin Ketorolac Tromethamine 15 mg 10/19/24 08:25 10/19/24 08:51 Ketorolac 15 Mg/Ml Inj IVP 15 mg Q6H PRN Administration Discontinued Medications Generic Name Dose Route Start Last Admin Trade Name Freq PRN Reason Stop Dose Admin Sodium Chloride 1,000 mls @ 1,000 mls/hr 10/19/24 08:26 10/19/24 11:04 0.9 % Sodium Chloride 1000 Ml IV 10/19/24 09:25 Infused .Q1H GEORGIE Infusion Medical Decision Making Lab Data Labs: Lab Results 10/19/24 10/19/24 Range/Units 08:28 10:54 WBC 7.37 (4.50-11.00) K/uL RBC 3.83 L (4.00-5.20) m/uL Hgb 8.9 L (12.0-16.0) gm/dL Hct 28.2 L (33.0-51.0) % MCV 74 L (80-100) fL MCH 23 L (26-34) pg MCHC 32 (32-36) gm/dL RDW Coeff of Som 15.1 (11.5-15.5) % Plt Count 254 (140-440) K/uL Neut % (Auto) 72.9 H (42.0-72.0) % Lymph % (Auto) 16.3 L (20-44) % [place] % (Auto) 7.2 (0.0-11.0) % Eos % (Auto) 2.8 (0.0-7.0) % Baso % (Auto) 0.4 (0.0-3.0) % Neut # (Auto) 5.40 (1.7-7.0) K/uL Lymph # (Auto) 1.20 (0.90-2.90) K/uL [place] # (Auto) 0.50 (0.00-0.90) K/UL Eos # (Auto) 0.21 (0.00-0.50) K/uL Baso # (Auto) 0.03 (0.00-0.30) K/uL Abs Immat Gran (auto) 0.03 (0.00-0.30) K/uL Imm/Tot Granulo (auto) 0.4 % Diff Slide Review (Acceptable) INR 1.06 (0.91-1.10) Sodium 137 (135-149) mmol/L Potassium 3.7 (3.6-5.1) mmol/L Chloride 108 (96-114) mmol/L Carbon Dioxide 25 (20-32) mmol/L Anion Gap 4 L (7-15) mEq/L BUN 9 (5-24) mg/dL Creatinine 0.5 (0.5-1.5) mg/dL Estimated Creat Clear 132.69 Estimated GFR 136 ml/min Glucose 94 (60-115) mg/dL Calcium 8.3 L (8.4-10.6) mg/dL Total Bilirubin 0.3 (0.1-1.5) mg/dL AST 45 H (12-35) U/L ALT 44 H (4-35) U/L Alkaline Phosphatase 172 H (40-150) U/L Total Protein 5.9 L (6.0-8.3) g/dL Albumin 3.2 L (3.3-5.0) g/dL Urine Color Yellow (Yellow) Urine Appearance Cloudy A (Clear) Urine pH 7.0 (5.0-8.5) Ur Specific [place] 1.025 (1.000-1.030) Urine Protein Trace A (Negative) Urine Glucose (UA) Negative (Negative) Urine Ketones 2+ A (Negative) Urine Blood 3+ A (Negative) Urine Nitrite Negative (Negative) Urine Bilirubin Negative (Negative) Urine Urobilinogen 1.0 (0.2-1.0) Ur Leukocyte Esterase Negative (Negative) Urine RBC 5-10 A (0-2) Urine WBC 5-10 A (0-5) Ur Squamous Epith Cells Few (None-Few) Amorphous Sediment Many A (None) Urine Bacteria Few A (None) Discharge Plan Discharge Clinical Impression: Headache, Elevated LFTs, Elevated blood pressure reading Patient Disposition: Admitted As Observation
[2024-10-19 08:35] LABS: Hematocrit 28.2 % (33.0-51.0); Hemoglobin* 8.9 gm/dL (12.0-16.0); Immature Granulocytes Abs Auto 0.03 K/uL (0.00-0.30); Immature Granulocytes Pct Auto 0.4 %; Lymphocytes Absolute Auto 1.20 K/uL (0.90-2.90); Mean Corpuscular HGB Conc 32 gm/dL (32-36); Mean Corpuscular Hemoglobin 23 pg (26-34); Mean Corpuscular Volume 74 fL (80-100); RDW Coefficient of Variation % 15.1 % (11.5-15.5); Red Blood Count 3.83 m/uL (4.00-5.20); White Blood Count* 7.37 K/uL (4.50-11.00)
[2024-10-19 08:36] LABS: Slide Review Reflex Yes
[2024-10-19 08:52] LABS: Albumin* 3.2 g/dL (3.3-5.0); Chloride* 108 mmol/L (96-114); Potassium* 3.7 mmol/L (3.6-5.1); Sodium* 137 mmol/L (135-149)
[2024-10-19 08:54] LABS: Blood Urea Nitrogen* 9 mg/dL (5-24); Creatinine* 0.5 mg/dL (0.5-1.5); Est. Creatinine Clearance* 132.69; Estimated Glomerular Filt Rate 136 ml/min; INR 1.06 (0.91-1.10); Prothrombin Time 14.6 Seconds
--- NOTE | 2024-10-19 08:54 | CRLHL7_ITS ---
For Patients: As a result of the Cures Act, medical imaging exams and procedure reports are released immediately into your electronic medical record. You may view this report before your referring provider. If you have questions, please contact your health care provider. INDICATION: post sob. (Sic) COMPARISON: None available. TECHNIQUE: PA and lateral views of the chest. FINDINGS: Medical Devices: None. Lung Volumes: Adequate inspiration. No significant atelectasis. Lungs: Clear lungs. Radiopaque buttons extraneous to the patient overlie the right scapula, left anterior 2nd rib and soft tissues of the left lateral chest wall on the frontal view of the chest. Pleura and Pleural spaces: No significant pleural effusion. No pneumothorax. Mediastinum: Normal cardiomediastinal silhouette. Bony Thorax and Soft Tissues: No significant incidental findings. IMPRESSION: No findings to explain the clinical history. Dictated by Tristan Morfin MD @ 10/19/2024 10:21:09 AM (Electronically Signed)
[2024-10-19 08:55] LABS: Alanine Aminotransferase* 44 U/L (4-35); Alkaline Phosphatase* 172 U/L (40-150); Anion Gap 4 mEq/L (7-15); Aspartate Amino Transferase* 45 U/L (12-35); Bilirubin Total* 0.3 mg/dL (0.1-1.5); Calcium* 8.3 mg/dL (8.4-10.6); Carbon Dioxide* 25 mmol/L (20-32); Glucose* 94 mg/dL (60-115); Total Protein* 5.9 g/dL (6.0-8.3)
[2024-10-19 11:02] LABS: Appearance Urine Cloudy (Clear)
[2024-10-19 13:49] LABS: Hematocrit 28.1 % (33.0-51.0); Hemoglobin* 8.9 gm/dL (12.0-16.0); Mean Corpuscular HGB Conc 32 gm/dL (32-36); Mean Corpuscular Hemoglobin 23 pg (26-34); Mean Corpuscular Volume 74 fL (80-100); Red Blood Count 3.81 m/uL (4.00-5.20); White Blood Count* 6.72 K/uL (4.50-11.00)
[2024-10-19 13:56] LABS: Slide Review Reflex No
[2024-10-19 14:05] LABS: Alanine Aminotransferase* 42 U/L (4-35); Aspartate Amino Transferase* 40 U/L (12-35); Blood Urea Nitrogen* 8 mg/dL (5-24); Creatinine* 0.5 mg/dL (0.5-1.5); Est. Creatinine Clearance* 132.69; Estimated Glomerular Filt Rate 136 ml/min
[2024-10-19] MEDS: LABETALOL HCL 100 MG TABLET PO ×2 (14:13→20:54)
--- NOTE | 2024-10-19 14:25 | P.FPHP_ITS ---
History of Present Illness History of Present Illness Time Seen by Provider: 14:20 Date Seen: 10/19/24 Chief complaint: sob Narrative: Estella Munoz is a 24 year old female who is now s/p at 38wks on 10/14/24 at [facility]. She reports she woke up this morning and few minutes later chest felt tight, she then developed some sob and tingling in her teeth. she tells me she felt like she started panicking. Her sister called ER who told her to call EMS. pt tells me she did not check bp at home. ER doc reported pt had checked BP at home and was 160/90. pt reports EMS did check her BP when they arrived but she is not sure what level was. On her way to ER she developed a 'mild' headache. pt thought headache was from being tired as not sleeping well. No vision changes. Pt reports lots of stress with adjusting to new baby and nursing every 2 hours. She has not been eating as says difficult with new baby and baby demands. No N/V. No F/C/cough or cold sxs. Does not feel sick. Reports no hx eating disorder. She does report hx anxiety and depression. Was on sertraline briefly few years ago--took for couple weeks. says thinks stopped b/c not notice improvement. She has not been taking her iron supplement. In ER initial BP was 129/86 and then 130's/80-90's. She was given IVF bolus and toradol. Headache resolved. Labs were significant for hgb 8.9 ( was 9.3 prior to d/c), platelets and creatinine were wnl, AST elevated at 45 (was 35 prev ) and ALT 44 (was 12). Delivery was uncomplicated except she did have some elevated BP's in labor but these were not 4 hours apart and were thought due to pain as was having c ontraction screaming in pain when occurred as epidural was not working. She then got epidural and had deliery and bp's were < 140/90. Preeclamptic labs at that time were normal except AST was elevated at 44, recheck 6 hours later was 35. She was discharged home 10/16/24. she is and reports nursing every 2 hours. She had good care in [place] and moved to [place] right around time of delivery. She had not established with provider in [place] yet. Her course was significant for Low BMI prior to (16), anemia on oral iron (hgb 10), macrosomia. Social history: her /FOB is incarcerated. Her sister has been helping her and lives in [place]. She does not now anyone in [place]. Moved here as was living with her dad and did not think she should raise her baby around him. she is concerned about having enough food for herself. She says she currently does. She has WIC. She did sign up for [facility] nurse to come to house and says they did call her to set up time. [facility] Medical History (Updated 10/19/24 @ 15:22 by Constance Padilla DO) Depression ?F32.A - Depression, unspecified (ICD-10) Anxiety ?F41.9 - Anxiety disorder, unspecified (ICD-10) Social History What is your current living situation?: I have a place to live at present, but am concerned about future Problems where you live: no known problems In the past 12 months, utilities in danger of being shut off: no In past 12 months, lack of transportation kept you from medical appts, meetings, work, or getting things needed for daily living: no In the past 12 mos, have been you worried that your food would run out before you had money to buy more?: sometimes true In the past 12 mos, the food you bought just didn't last and you didn't have money to buy more?: sometimes true Smoking Status: Never smoker Do you use any of these nicotine containing products: None Second hand tobacco smoke exposure: No How often do you have a drink containing alcohol: never AUDIT-C Alcohol total score: 0 Non-prescribed substance use: denies use How often does anyone, including family, friends and others, physically hurt you : never How often does anyone, including family, friends and others, insult or talk down to you: never How often does anyone, including family, friends and others, threaten you with harm: never How often does anyone, including family, friends and others, scream or curse at you: never Health Related Social Needs: housing instability, housed, with risk of homelessness (Z59.811) and food insecurity (Z59.41) Meds Home Medications and Allergies Home Medications ?Medication ?Instructions ?Recorded ?Confirmed ?Type ferrous sulfate 325 mg (65 mg 325 mg PO Q48H 10/15/24 10/19/24 History iron) tablet (iron) Allergies Allergy/AdvReac Type Severity Reaction Status Date / Time shellfish derived Allergy Intermediate Hives Verified 10/19/24 14:20 Exam Const: Vital Signs, click to edit/add: Vital Signs - 24 hr 10/19/24 07:21 10/19/24 08:59 10/19/24 09:00 Temperature 98.6 F Pulse Rate 65 60 Pulse Rate [Right] 69 Respiratory Rate 18 Blood Pressure Blood Pressure [Ri ght Upper Arm] 129/86 Pulse Oximetry 100 97 98 [facility] 10/19/24 09:02 10/19/24 09:15 10/19/24 09:22 Temperature Pulse Rate 62 70 69 Pulse Rate [Right] Respiratory Rate Blood Pressure 137/95 H 132/90 H Blood Pressure [Ri ght Upper Arm] Pulse Oximetry 98 98 98 Oxygen Delivery [facility] 10/19/24 09:42 10/19/24 10:02 10/19/24 10:21 Temperature Pulse Rate Pulse Rate [Right] Respiratory Rate Blood Pressure 137/87 134/91 H 119/63 Blood Pressure [Ri ght Upper Arm] Pulse Oximetry Oxygen Delivery [facility] 10/19/24 10:43 10/19/24 11:47 10/19/24 12:29 Temperature Pulse Rate Pulse Rate [Right] Respiratory Rate Blood Pressure 146/79 H 136/95 H Blood Pressure [Ri ght Upper Arm] Pulse Oximetry 97 Oxygen Delivery [facility] 10/19/24 12:31 10/19/24 12:43 10/19/24 12:48 Temperature Pulse Rate 60 56 L 57 L Pulse Rate [Right] Respiratory Rate Blood Pressure 133/80 162/90 H 142/82 H Blood Pressure [Ri ght Upper Arm] Pulse Oximetry [facility]xygen Delivery [facility] 10/19/24 12:58 10/19/24 13:02 10/19/24 13:13 Temperature Pulse Rate 59 L 59 L 65 Pulse Rate [Right] Respiratory Rate Blood Pressure 173/91 H 141/78 H 182/92 H Blood Pressure [Ri ght Upper Arm] Pulse Oximetry Oxygen Delivery [facility] 10/19/24 13:22 10/19/24 13:27 10/19/24 13:32 Temperature Pulse Rate 67 Pulse Rate [Right] Respiratory Rate Blood Pressure 138/82 Blood Pressure [Ri ght Upper Arm] Pulse Oximetry 97 97 97 Oxygen Delivery [facility] 10/19/24 13:37 10/19/24 13:42 10/19/24 13:47 Temperature Pulse Rate 60 Pulse Rate [Right] Respiratory Rate Blood Pressure 155/87 H Blood Pressure [Ri ght Upper Arm] Pulse Oximetry 97 97 95 Oxygen Delivery [facility] 10/19/24 13:50 10/19/24 13:51 10/19/24 13:52 Temperature Pulse Rate 65 Pulse Rate [Right] Respiratory Rate Blood Pressure 156/97 H Blood Pressure [Ri ght Upper Arm] Pulse Oximetry 94 99 Oxygen Delivery [facility] 10/19/24 13:57 10/19/24 13:57 10/19/24 14:01 Temperature 98.3 F Pulse Rate 62 Pulse Rate [Right] Respiratory Rate 16 Blood Pressure 153/86 H Blood Pressure [Ri ght Upper Arm] Pulse Oximetry 97 97 Oxygen Delivery [facility] Room Air 10/19/24 14:02 10/19/24 14:07 10/19/24 14:11 Temperature Pulse Rate 63 Pulse Rate [Right] Respiratory Rate Blood Pressure 134/86 Blood Pressure [Ri ght Upper Arm] Pulse Oximetry 98 97 Oxygen Delivery [facility] 10/19/24 14:12 10/19/24 14:17 10/19/24 14:21 Temperature Pulse Rate 61 Pulse Rate [Right] Respiratory Rate Blood Pressure 142/89 H Blood Pressure [Ri ght Upper Arm] Pulse Oximetry 97 97 Oxygen Delivery [facility] 10/19/24 14:22 Temperature Pulse Rate Pulse Rate [Right] Respiratory Rate Blood Pressure Blood Pressure [Ri ght Upper Arm] Pulse Oximetry 98 Oxygen Delivery [facility] Documenting provider has reviewed patient's vital signs: yes Common normals: no apparent distress, oriented x3 and alert General appearance: cooperative HENMT: Common normals: normocephalic Head and scalp: normocephalic Eye: Common normals: conjunctivae normal Conjunctiva: conjunctiva(e) normal Resp: Common normals: normal respiratory effort, no retractions and clear to auscultation bilaterally Auscultation: clear to auscultation bilaterally Cardio: Common normals: regular rate and regular rhythm; murmurs detected Rate: regular rate Rhythm: regular rhythm : Uterus: U/1 and firm Uterus palpation: uterus nontender Extremity: Common normals: normal to inspection, no calf tenderness and no pedal edema Neuro: Common normals: oriented x3 Sensorium/orientation: alert Speech: speech normal Motor exam: other (no clonus) Deep tendon reflexes: Rt P atellar (L4): 3+ and Lt Patellar (L4): 3+ Psych: Common normals: thought process normal, cooperative and speech normal Speech: normal speech Mood and affect: flat affect Thought process: normal thought process Skin: Common normals: no rashes or lesions noted General skin exam: no rashes or lesions noted Results Labs Labs: Abnormal lab results 10/19/24 10/19/24 10/19/24 Range/Units 08:28 10:54 13:40 RBC 3.83 L 3.81 L (4.00-5.20) m/uL Hgb 8.9 L 8.9 L (12.0-16.0) gm/dL Hct 28.2 L 28.1 L (33.0-51.0) % MCV 74 L 74 L (80-100) fL MCH 23 L 23 L (26-34) pg Neut % (Auto) 72.9 H (42.0-72.0) % Lymph % (Auto) 16.3 L (20-44) % Anion Gap 4 L (7-15) mEq/L Calcium 8.3 L (8.4-10.6) mg/dL AST 45 H 40 H (12-35) U/L ALT 44 H 42 H (4-35) U/L Alkaline Phosphatase 172 H (40-150) U/L Total Protein 5.9 L (6.0-8.3) g/dL Albumin 3.2 L (3.3-5.0) g/dL Urine Appearance Cloudy A (Clear) Urine Protein Trace A (Negative) Urine Ketones 2+ A (Negative) Urine Blood 3+ A (Negative) Urine RBC 5-10 A (0-2) Urine WBC 5-10 A (0-5) Amorphous Sediment Many A (None) Urine Bacteria Few A (None) Short CBC 10/19/24 10/19/24 Range/Units 08:28 13:40 WBC 7.37 6.72 (4.50-11.00) K/uL Hgb 8.9 L 8.9 L (12.0-16.0) gm/dL Hct 28.2 L 28.1 L (33.0-51.0) % Plt Count 254 240 (140-440) K/uL BMP 10/19/24 10/19/24 08:28 13:40 Sodium 137 Potassium 3.7 Chloride 108 Carbon Dioxide 25 BUN 9 8 Creatinine 0.5 0.5 Glucose 94 Calcium 8.3 L Liver Function 10/19/24 10/19/24 Range/Units 08:28 13:40 Total Bilirubin 0.3 (0.1-1.5) mg/dL AST 45 H 40 H (12-35) U/L ALT 44 H 42 H (4-35) U/L Alkaline Phosphatase 172 H (40-150) U/L Albumin 3.2 L (3.3-5.0) g/dL Urine 10/19/24 Range/Units 10:54 Urine Color Yellow (Yellow) Urine Appearance Cloudy A (Clear) Urine pH 7.0 (5.0-8.5) Ur Specific [place] 1.025 (1.000-1.030) Urine Protein Trace A (Negative) Urine Glucose (UA) Negative (Negative) All other labs normal. Assessment and Plan Assessment and plan (1) hypertension: Status: Acute Assessment and Plan: -BP's in ER were elevated but not in severe range but had severe BP by EMS and with elevated AST/ALT, important to admit for observation to clarify bp levels and if labs trending into severe preeclampsia range. -On center she did have 3 elevated BP's in severe range but RN reports there was a factor each time (ex: arm bent) each time those were checked and repeat each time was not in severe range so did not have sustained BP in severe range. -Repeat labs show ALT/AST stable/slightly decreased. -Start labetalol for bp. Will monitor BP's and adjust if needed. If bp's remain improved with monitoring, would plan d/c home later today. If increasing or not stable, would need to stay overnight to get under control. discussed with pt and reviewed risks uncontrolled bp . -needs home BP cuff and discussed keeping home log and bringing to followup apts. reviewed concerning levels and reasons need be seen. If able go home later today, would have close followup with clinic visit with Dr Garcia Monday at 9:10am. -discussed anxiety and depression. reviewed risks vs benefits of SSRI's and she is in agreement to start sertraline. -restart iron for known anemia -discussed resources in town and encouraged her to use these (public home RN, baby talk, clinical practice consultant, [facility]). RN is giving resources on these for her Addendum: BP's were improved initially but then started increasing and headache returned. Pt needs to stay overnight to adjust bp medications and monitor for w orsening preeclampia and make sure not going into severe range and that bp's are controlled on adequate regiman to d/c to home. Nifedipine added and then increased. EKG done as nurse reported irregular heartbeat and significant variability in pulse. EKG with mild sinus tachycardia. Tylenol for headache. Plan monitor bp's, symptoms overnight, repeat labs in morning. (2) Food insecurity: Status: Acute Total Time Spent Total Time Spent: 100min
[2024-10-19] MEDS: ACETAMINOPHEN 500 MG TABLET 1000 MG PO ×2 (15:55→21:02)
[2024-10-20 00:30] VITALS: BP 118/66; PULSE 99; RESP 20; O2SAT 98
[2024-10-20 01:30] VITALS: BP 124/76; PULSE 87; RESP 16; O2SAT 97
[2024-10-20 04:00] VITALS: BP 135/74; PULSE 76; RESP 16; O2SAT 98
[2024-10-20 05:23] LABS: Hematocrit 29.3 % (33.0-51.0); Hemoglobin* 9.2 gm/dL (12.0-16.0); Mean Corpuscular HGB Conc 31 gm/dL (32-36); Mean Corpuscular Hemoglobin 23 pg (26-34); Mean Corpuscular Volume 74 fL (80-100); Red Blood Count 3.96 m/uL (4.00-5.20); White Blood Count* 9.31 K/uL (4.50-11.00)
[2024-10-20 05:31] LABS: Slide Review Reflex No
[2024-10-20 05:35] LABS: Alanine Aminotransferase* 36 U/L (4-35); Aspartate Amino Transferase* 30 U/L (12-35); Blood Urea Nitrogen* 7 mg/dL (5-24); Creatinine* 0.5 mg/dL (0.5-1.5); Est. Creatinine Clearance* 136.99; Estimated Glomerular Filt Rate 136 ml/min
[2024-10-20] MEDS: LABETALOL HCL 100 MG TABLET PO (08:47)
[2024-10-20] MEDS: SERTRALINE 50 MG TABLET 25 MG PO (08:48)
--- NOTE | 2024-10-20 08:53 | PM.DS1 ---
DS: Providers Provider Time Seen by Provider: 08:53 Date Seen: 10/20/24 Date of admission: 10/19/24 14:08 Primary care physician: Not a Local Provider Admitting Clinician: Constance Padilla DO Attending Physician on discharge: Constance Padilla DO Date of Discharge: 10/20/24 DS: Diagnosis Discharge Diagnosis (1) Preeclampsia in period: Status: Acute Problem details: Started on labetalol and nifedipine and bp's under much better control. Home BP monitoring. (2) Elevated LFTs: Status: Acute Problem details: mildly elevated (did not increase 2x's normal), improving on discharge (3) Anxiety: Status: Acute Problem details: started on sertraline (4) Depression: Status: Acute Problem details: started on sertraline DS: Summary Hospital Course Hospital Course: Estella is a 24 yo who delivered by on 10/14/24, readmitted 10/19/24 due to new onset preeclampsia with slightly elevated LFT's. She was started on labetalol and nifedipine during hospitalization. LFT's were trended on improving. LFT's were never at or above 2x's upper limit of normal. Pt also with significant anxiety/depression and was started on sertraline. Pt is new to [place] and without local family or support and has food insecurity. Currently has housing through [facility] and has WIC. Resources given and discussed with pt. Pt does reports feeling better this morning. Breathing is improved. Bp's controlled overnight. Tylenol takes headache away. Plan is for discharge today with close followup. Time Spent with Patient Time attestation: Total time spent providing and/or coordinating discharge services: Time spent: Less than 30 minutes Exam Const: Vital Signs, click to edit/add: Vital Signs - 24 hr 10/19/24 08:59 10/19/24 09:00 10/19/24 09:02 Temperature Pulse Rate 65 60 62 Respiratory Rate Blood Pressure 137/95 H Pulse Oximetry 97 98 98 Oxygen Delivery Me thod 10/19/24 09:15 10/19/24 09:22 10/19/24 09:42 Temperature Pulse Rate 70 69 Respiratory Rate Blood Pressure 132/90 H 137/87 Pulse [facility]xim[facility] 98 [facility] 10:02 10/19/24 10:21 10/19/24 10:43 Temperature Pulse Rate Respiratory Rate Blood Pressure 134/91 H 119/63 146/79 H Pulse Oximetry Oxygen Delivery Me thod 10/19/24 11:47 10/19/24 12:29 10/19/24 12:31 Temperature Pulse Rate 60 Respiratory Rate Blood Pressure 136/95 H 133/80 Pulse Oximetry 97 Oxygen Delivery Me thod 10/19/24 12:43 10/19/24 12:48 10/19/24 12:58 Temperature Pulse Rate 56 L 57 L 59 L Respiratory Rate Blood Pressure 162/90 H 142/82 H 173/91 H Pulse Oximetry Oxygen Delivery Me thod 10/19/24 13:02 10/19/24 13:13 10/19/24 13:22 Temperature Pulse Rate 59 L 65 Respiratory Rate Blood Pressure 141/78 H 182/92 H Pulse Oximetry 97 Oxygen Delivery Me thod 10/19/24 13:27 10/19/24 13:32 10/19/24 13:37 Temperature Pulse Rate 67 Respiratory Rate Blood Pressure 138/82 Pulse Oximetry 97 97 97 Oxygen Delivery Me thod 10/19/24 13:42 10/19/24 13:47 10/19/24 13:50 Temperature Pulse Rate 60 Respiratory Rate Blood Pressure 155/87 H Pulse Oximetry 97 95 94 Oxygen Delivery Me thod 10/19/24 13:51 10/19/24 13:52 10/19/24 13:57 Temperature Pulse Rate 65 Respiratory Rate Blood Pressure 156/97 H Pulse Oximetry 99 97 Oxygen Delivery Me thod 10/19/24 13:57 10/19/24 14:01 10/19/24 14:02 Temperature 98.3 F Pulse Rate 62 Respiratory Rate 16 Blood Pressure 153/86 H Pulse Oximetry 97 98 Oxygen Delivery Me thod Room Air 10/19/24 14:07 10/19/24 14:11 10/19/24 14:12 Temperature Pulse Rate 63 Respiratory Rate Blood Pressure 134/86 Pulse Oximetry 97 97 Oxygen Delivery Me thod 10/19/24 14:17 10/19/24 14:21 10/19/24 14:22 Temperature Pulse Rate 61 Respiratory Rate Blood Pressure 142/89 H Pulse Oximetry 97 98 Oxygen Delivery Me thod 10/19/24 14:27 10/19/24 14:31 10/19/24 14:32 Temperature Pulse Rate 65 Respiratory Rate Blood Pressure 154/95 H Pulse Oximetry 98 98 Oxygen Delivery Me thod 10/19/24 14:37 10/19/24 14:42 10/19/24 14:47 Temperature Pulse Rate 57 L Respiratory Rate Blood Pressure 132/77 Pulse Oximetry 97 97 97 Oxygen Delivery Me thod 10/19/24 14:51 10/19/24 14:52 10/19/24 14:57 Temperature Pulse Rate 60 Respiratory Rate Blood Pressure 128/79 Pulse Oximetry 97 97 Oxygen Delivery Me thod 10/19/24 15:02 10/19/24 15:07 10/19/24 15:12 Temperature Pulse Rate 65 Respiratory Rate Blood Pressure 127/78 Pulse Oximetry 97 97 97 Oxygen Delivery Me thod 10/19/24 15:22 10/19/24 15:27 10/19/24 15:32 Temperature Pulse Rate 69 Respiratory Rate Blood Pressure 113/65 Pulse Oximetry 93 98 98 Oxygen Delivery Me thod 10/19/24 15:37 10/19/24 15:42 10/19/24 15:47 Temperature Pulse Rate 62 Respiratory Rate Blood Pressure 117/73 Pulse Oximetry 98 99 98 Oxygen Delivery Me thod 10/19/24 15:52 10/19/24 15:57 10/19/24 15:58 Temperature 97.8 F Pulse Rate 60 Respiratory Rate 16 Blood Pressure 142/84 H Pulse Oximetry 98 98 98 Oxygen Delivery Me thod Room Air 10/19/24 16:02 10/19/24 16:07 10/19/24 16:12 Temperature Pulse Rate 58 L Respiratory Rate Blood Pressure 137/84 Pulse Oximetry 98 99 97 Oxygen Delivery Me thod 10/19/24 16:13 10/19/24 16:17 10/19/24 16:22 Temperature Pulse Rate 58 L Respiratory Rate Blood Pressure 154/91 H Pulse Oximetry 94 97 99 Oxygen Delivery Me thod 10/19/24 16:24 10/19/24 16:27 10/19/24 16:32 Temperature Pulse Rate 60 Respiratory Rate Blood Pressure 137/80 Pulse Oximetry 99 98 Oxygen Delivery Me thod 10/19/24 16:37 10/19/24 16:42 10/19/24 16:47 Temperature Pulse Rate 66 Respiratory Rate Blood Pressure 151/88 H Pulse Oximetry 98 98 99 Oxygen Delivery Me thod 10/19/24 16:52 10/19/24 16:57 10/19/24 17:02 Temperature Pulse Rate 64 Respiratory Rate Blood Pressure 137/88 Pulse Oximetry 99 99 98 Oxygen Delivery Me thod 10/19/24 17:07 10/19/24 17:12 10/19/24 17:17 Temperature Pulse Rate 64 Respiratory Rate Blood Pressure 141/90 H Pulse Oximetry 99 96 99 Oxygen Delivery Me thod 10/19/24 17:22 10/19/24 17:27 10/19/24 17:32 Temperature Pulse Rate 64 Respiratory Rate Blood Pressure 129/83 Pulse Oximetry 99 97 98 Oxygen Delivery Me thod 10/19/24 17:37 10/19/24 17:42 10/19/24 17:47 Temperature Pulse Rate 60 Respiratory Rate Blood Pressure 132/82 Pulse Oximetry 99 97 97 Oxygen Delivery Me thod 10/19/24 17:52 10/19/24 17:57 10/19/24 18:02 Temperature Pulse Rate 74 Respiratory Rate Blood Pressure 156/86 H Pulse Oximetry 97 98 98 Oxygen Delivery Me thod 10/19/24 18:07 10/19/24 18:12 10/19/24 18:17 Temperature Pulse Rate 88 Respiratory Rate Blood Pressure 144/83 H Pulse Oximetry 97 99 97 Oxygen Delivery Me thod 10/19/24 18:22 10/19/24 18:27 10/19/24 18:32 Temperature Pulse Rate 79 Respiratory Rate Blood Pressure 149/86 H Pulse Oximetry 99 98 98 Oxygen Delivery Me thod 10/19/24 18:37 10/19/24 18:42 10/19/24 18:47 Temperature Pulse Rate 83 Respiratory Rate Blood Pressure 145/92 H Pulse Oximetry 99 99 100 Oxygen Delivery Me thod 10/19/24 18:52 10/19/24 18:57 10/19/24 19:02 Temperature Pulse Rate 76 Respiratory Rate Blood Pressure 125/80 Pulse Oximetry 99 99 98 Oxygen Delivery Me thod 10/19/24 19:07 10/19/24 19:12 10/19/24 19:17 Temperature Pulse Rate 78 Respiratory Rate Blood Pressure 126/79 Pulse Oximetry 99 98 98 Oxygen Delivery Me thod 10/19/24 19:22 10/19/24 19:27 10/19/24 19:32 Temperature Pulse Rate 121 H Respiratory Rate Blood Pressure 119/78 Pulse Oximetry 99 99 99 Oxygen Delivery Me thod 10/19/24 19:37 10/19/24 19:42 10/19/24 19:43 Temperature Pulse Rate 98 Respiratory Rate Blood Pressure 119/70 Pulse Oximetry 98 97 94 Oxygen Delivery Me thod 10/19/24 19:47 10/19/24 19:49 10/19/24 19:52 Temperature Pulse Rate 110 H Respiratory Rate Blood Pressure 121/74 Pulse Oximetry 97 94 97 Oxygen Delivery Ca thod 10/19/24 19:54 10/19/24 19:57 10/19/24 20:00 Temperature Pulse Rate Respiratory Rate Blood Pressure Pulse Oximetry 94 97 94 Oxygen Delivery Me thod 10/19/24 20:02 10/19/24 20:07 10/19/24 20:12 Temperature Pulse Rate 112 H Respiratory Rate 16 Blood Pressure 113/63 Pulse Oximetry 98 97 97 Oxygen Delivery Ca thod 10/19/24 20:17 10/19/24 20:22 10/19/24 21:01 Temperature Pulse Rate 112 H 102 H Respiratory Rate Blood Pressure 117/71 115/60 Pulse Oximetry 97 99 97 Oxygen Delivery Ca thod 10/19/24 21:01 10/19/24 21:27 10/19/24 22:30 Temperature 98.5 F Pulse Rate 100 110 H Respiratory Rate 16 16 Blood Pressure 113/61 111/67 Pulse Oximetry 98 95 Oxygen Delivery Me thod 10/19/24 23:30 10/20/24 00:30 10/20/24 01:30 Temperature 98.7 F Pulse Rate 90 99 Respiratory Rate 16 20 16 Blood Pressure 118/63 118/66 124/76 Pulse Oximetry 95 98 97 Oxygen Delivery Ca thod 10/20/24 04:00 Temperature Pulse Rate 76 Respiratory Rate 16 Blood Pressure 135/74 Pulse Oximetry 98 Oxygen Delivery Me thod Documenting provider has reviewed patient's vital signs: yes Common normals: no apparent distress General appearance: cooperative and comfortable Orientation/consciousness: Yes awake Resp: Common normals: normal respiratory effort and clear to auscultation bilaterally Effort & inspection: able to speak in complete sentences Auscultation: clear to auscultation bilaterally; no crackles and no wheezes Cardio: Common normals: regular rate and regular rhythm; murmurs detected Rate: regular rate Rhythm: regular rhythm Extremity: Common normals: pedal edema Neuro: Sensorium/orientation: awake Deep tendon reflexes: Rt Patellar (L4): 2+ and Lt Patellar (L4): 2+ Psych: Common normals: thought process normal and speech normal Attitude: calm Activity/motor behavior: appropriate eye contact Speech: normal speech Mood and affect: flat affect (flat affect but improved from yesterday and does smile) Thought process: normal thought process DS: Data Data Completed and Pending Labs on day of discharge: Labs from last 24 hours 10/20/24 10/19/24 10/19/24 04:57 13:40 10:54 WBC 9.31 6.72 RBC 3.96 L 3.81 L Hgb 9.2 L 8.9 L Hct 29.3 L 28.1 L MCV 74 L 74 L MCH 23 L 23 L MCHC 31 L 32 Plt Count 303 240 Diff Slide Review INR Sodium Potassium Chloride Carbon Dioxide Anion Gap BUN 7 8 Creatinine 0.5 0.5 Estimated Creat Clear 136.99 132.69 Estimated GFR 136 136 Glucose Calcium Total Bilirubin AST 30 40 H ALT 36 H 42 H Alkaline Phosphatase Total Protein Albumin Urine Color Yellow Urine Appearance Cloudy A Urine pH 7.0 Ur Specific [place] 1.025 Urine Protein Trace A Urine Glucose (UA) Negative Urine Ketones 2+ A Urine Blood 3+ A Urine Nitrite Negative Urine Bilirubin Negative Urine Urobilinogen 1.0 Ur Leukocyte Esterase Negative Urine RBC 5-10 A Urine WBC 5-10 A Ur Squamous Epith Cells Few Amorphous Sediment Many A Urine Bacteria Few A 10/19/24 08:28 WBC RBC Hgb Hct MCV MCH MCHC Plt Count Diff Slide Review INR 1.06 Sodium 137 Potassium 3.7 Chloride 108 Carbon Dioxide 25 Anion Gap 4 L BUN 9 Creatinine 0.5 Estimated Creat Clear 132.69 Estimated GFR 136 Glucose 94 Calcium 8.3 L Total Bilirubin 0.3 AST 45 H ALT 44 H Alkaline Phosphatase 172 H Total Protein 5.9 L Albumin 3.2 L Urine Color Urine Appearance Urine pH Ur Specific [place] Urine Protein Urine Glucose (UA) Urine Ketones Urine Blood Urine Nitrite Urine Bilirubin Urine Urobilinogen Ur Leukocyte Esterase Urine RBC Urine WBC Ur Squamous Epith Cells Amorphous Sediment Urine Bacteria Preliminary micro results at discharge 10/19/24 10:54 Urine Culture - Preliminary Urine,Clean Catch Culture in Progress Discharge Plan Discharge Disposition: Home, Self-Care Date of Admission: 10/19/24 14:08 Primary Care Provider: Provider,Not a Local Condition: Stable Anticipated Discharge Date/Time: 10/20/24 09:19 Discharge Medications: New nifedipine 30 mg Tablet Extended Release 60 mg PO DAILY Qty: 60 1RF labetalol 100 mg Tablet 100 mg PO BID Qty: 60 1RF sertraline 50 mg Tablet 25 mg PO DAILY Qty: 90 3RF Rx Instructions: Take 25mg daily x 1 week then increase to full tablet daily Plus (calcium carb) 27 mg iron- 1 mg tablet 1 tab PO DAILY Qty: 90 3RF Continued ferrous sulfate [iron] 325 mg (65 mg iron) tablet 325 mg PO Q48H Qty: 90 3RF Discharge Orders: Discharge Order (Routine); Ordered 10/20/24 Ordered By: Constance Padilla Patient Education: Preeclampsia and Eclampsia After Delivery (GEN) Additional Instructions: Check BP daily. Sit and relax for 15min prior to checking. Write down and bring to follow up apt. If Bp's >160/110 on either number, sit and recheck 15min later. If remains >160/110, you need seen right away. If headache not resolve with water and tylenol, you need seen. We do not expect these things but need to mention them just in case. IF BP's getting below 105 on top number, let clinic now so we can adjust meds. Activity Detail: pelvic rest x 6 weeks Discharge Diet: Regular Diet Detail: Make sure and drink plenty of water and ear regular meals Follow Up Appointments: Provider,Not a Local [Primary Care Provider, Family Practice] Demetria Garcia MD [Staff Physician, Obstetrics] Referral Note: Schduled follow up Monday10/21/24 at [facility] with Dr Garcia [address] at 9:10am. Come few minutes early for check in Forms: Patient Belongings, MyHealth Info Instructions
[2024-10-20 08:55] VITALS: BP 125/77; PULSE 74; RESP 16; TEMP 36.7; O2SAT 97
[2024-10-20] MEDS: ACETAMINOPHEN 500 MG TABLET 1000 MG PO (09:03)
== END 2024-10-20 11:45 | disposition home or self-care (01) ==
LOC: ED 12:22 → OB 14:26
PROVIDERS: Admitting Provider Family Medicine; Emergency Provider Student in an Organized Health Care Education/Training Program; Visit Provider Family Medicine
DX: O14.95 Unspecified pre-eclampsia, complicating the puerperium (principal); O16.5 Unspecified maternal hypertension, complicating the puerperium; Z59.41 Food insecurity; R79.89 Other specified abnormal findings of blood chemistry; F41.9 Anxiety disorder, unspecified; F32.A Depression, unspecified
CPT/HCPCS: 36415; 71046; 80053; 81001; 82565; 84450; 84460; 84520; 85025; 85027; 85610; 87086; 93005; 96374; 99283; 99285; G0463; A9270; G0378; J1885; J7030